=== PATIENT | male | born 1950 | race Caucasian/White ===

== ENCOUNTER 2018-03-12 14:18 | Inpatient (IN) | payer OTHER ==
--- NOTE | 2018-03-12 14:27 | PDOC ---
History of Present Illness - General Stated Complaint: WEAKNESS Time Seen by Provider: 03/12/18 14:26 History Source: Patient Exam Limitations: No Limitations - History of Present Illness Initial Comments: 03/12/18 22:14 Mr. Connor with a hx of HTN, alcoholism (29 years sober), depression, and HLD who was brought in by EMS from Dr. Humphrey's office for a possible stroke. Per EMS, a call was made at approximately 1:25 pm with arrival at 1:30 pm for assessment. The patient was found not to have slurred speech or focal neurological deficits save for constricted pupils. Per the patient, he has been having generalized weakness for the past 2 weeks and is unable to care for himself in his home that he lives by himself in. He was unable to shower himself and get to the bathroom facilities, "crawling on the floor". He states he fell 5-6x throughout the 2 weeks sustaining head trauma 1x 1 week ago. He last ate 1 week ago and doesn't consume water, but consumes "2 liters of pepsi a day". He doesn't take his medications and feels "ambivalent to living", but denies suicidal ideation, homicidal ideation, and thoughts of self harm and denies a hx of these. He describes having depression. Per the patient's brother , his house is filled with trash and his brother (Huang) needs medical attention. Per the patient, he denies having pain. Denies the following: fever, chest pain, headaches, recent visual changes, SOB, abdominal pain, dysuria, hematuria, diarrhea, nausea, vomiting, hematochezia/melena, and leg swelling/ pain. Pmhx: Refer to above Shx: None Meds: None. Has not taken prescribed medications for 1 year. Allergies: NKDA Social hx: Smokes 1 pack/day, denies drinking alcohol (sober 29 years), and denies drug use. 03/12/18 23:57 NIH Stroke Scale - Last Known Well Date/Time & Onset Date Last Known Well: 03/12/18 Time Last Known Well: 13:25 - Initial Evaluation Level of consciousness: Alert Ask patient the month and their age: Answers both correctly Ask patient to open & close eyes; make fist and let go: Obeys both correctly Best gaze (horizontal eye movement): Normal Visual field testing: No visual field loss Facial paresis (Show teeth/raise eyebrows/close eyes tight): Normal symmetrical movement Motor Function: Left Arm: Normal Motor Function: Right Arm: Normal (extends arm 90 (or 45) degrees for 10 seconds without drift Motor Function: Left Leg: Drift Motor Function: Right Leg: Normal (extends leg 30 degrees for 5 seconds without drift) Limb Ataxia: No ataxia Sensory(Use pinprick test arms,legs,trunk,face/side to side): Normal Best language (Describe picture, name items, read sentences): No Aphasia Dysarthria (read several words): Normal articulation Extinction and Inattention: No abnormality - Total Score NIH Stroke Scale Score: 1 Past History - Past Medical History Allergies/Adverse Reactions: Allergies Allergy/AdvReac Type Severity Reaction Status Date / Time No Known Allergies Allergy Verified 03/12/18 15:22 Home Medications: Ambulatory Orders NK [No Known Home Medication] 03/12/18 Review of Systems - Review of Systems Able to Perform ROS?: Yes Constitutional: Yes: Weakness. No: Chills, Diaphoresis, Fever HEENTM: No: Eye Pain, Recent change in vision, Ear Pain, Nose Pain, Throat Pain , Mouth Pain Respiratory: No: Cough, Shortness of Breath Cardiac (ROS): No: Chest Pain, Edema, Palpitations, Syncope, Chest Tightness ABD/GI: No: Constipated, Diarrhea, Nausea, Rectal Bleeding, Vomiting, Tarry Stools : No: Burning, Dysuria, Hematuria, Incontinence Musculoskeletal: No: Back Pain Integumentary: No: Rash, Sweating Neurological: Yes: Weakness. No: Headache, Numbness, Paresthesia, Tingling, Tremors, Ataxia, Dizziness Psychiatric: Yes: Depression. No: Stressors Endocrine: No: Unexplained Weight Gain Hematologic/Lymphatic: No: Anemia *Physical Exam - Physical Exam General Appearance: Yes: Nourished, Disheveled HEENT: positive: EOMI, UMER (constricted pupils on exam, but reactive to light.) , Normal ENT Inspection, Normal Voice, TMs Normal Neck: negative: Lymphadenopathy (R), Lymphadenopathy (L) Respiratory/Chest: positive: Wheezing (bilateral expiratory wheezes. ). negative: Respiratory Distress, Accessory Muscle Use, Crackles, Rhonchi, Stridor Cardiovascular: positive: Regular Rhythm, Regular Rate, S1, S2. negative: Systolic Murmur Vascular Pulses: Dorsalis-Pedis (R): 3+, Doralis-Pedis (L): 3+ Gastrointestinal/Abdominal: positive: Normal Bowel Sounds. negative: Tender Lymphatic: negative: Adenopathy Musculoskeletal: positive: Normal Inspection. negative: CVA Tenderness Extremity: positive: Normal Capillary Refill, Normal Inspection, Normal Range of Motion. negative: Swelling, Calf Tenderness, Erythema Integumentary: positive: Normal Color, Dry, Warm Neurologic: positive: director mobile II-XII NML intact, Fully Oriented, Alert, Motor Strength 5/5. negative: Numbness, Sensory Deficit Heart Score/ECG Review - ECG Intrepretation Comment:: 03/13/18 00:40 ventricular rate is 72 bpm, NC interval is 168 ms, QTc is 538 ms, and QRS duration is [address] elevations. T wave abnormalities noted with inversions in I, II, aVL, V4, V5, V6. ED Treatment Course - LABORATORY CBC & Chemistry Diagram: 03/12/18 15:10 03/12/18 15:10 Medical Decision Making - Medical Decision Making 03/13/18 00:45 67 yo M with hx of depression, HTN, HLD, and alcoholism presenting with generalized weakness and graves disabilities with inability to care for self at the home s/p multiple mechanical falls and malnutrition Initial vitals: Initial Vital Signs Temp Pulse Resp BP Pulse Ox 97.6 F 81 18 144/86 96 03/12/18 14:19 03/12/18 14:19 03/12/18 14:19 03/12/18 14:19 03/12/18 14:19 Work up: Laboratory Tests 03/12/18 03/12/18 03/12/18 15:10 15:10 15:10 WBC 15.7 H RBC 5.13 Hgb 16.1 Hct 46.5 MCV 90.7 MCH 31.4 MCHC 34.7 RDW 13.6 Plt Count 194 MPV 10.9 Absolute Neuts (auto) 13.3 H Neutrophils % 84.5 H Lymphocytes % 7.3 L Monocytes % 7.2 Eosinophils % 0.1 Basophils % 0.9 Nucleated RBC % 0 PT with INR INR Sodium 140 Potassium 2.4 L* Chloride 90 L Carbon Dioxide 37 H Anion Gap 13 BUN 37 H Creatinine 2.5 H Creat Clearance w eGFR 26.05 Random Glucose 100 Calcium 8.5 Phosphorus 3.8 Magnesium 2.5 H Total Bilirubin 1.9 H AST 28 ALT 26 Alkaline Phosphatase 71 Creatine Kinase 202 Creatine Kinase Index 1.5 CK-MB (CK-2) 3.09 Troponin I 0.07 H Total Protein 7.1 Albumin 3.1 L TSH 0.86 Urine Color Catherine Urine Appearance Slcloudy Urine pH 5.0 Ur Specific [place] 1.021 Urine Protein 2+ H Urine Glucose (UA) Negative Urine Ketones Trace H Urine Blood 1+ H Urine Nitrite Negative Urine Bilirubin 2.0 Urine Urobilinogen 4.0 e.u/dl Ur Leukocyte Esterase Negative Urine WBC (Auto) 3 Urine RBC (Auto) 10 Ur Epithelial Cells Rare Urine Mucus Rare Ur Random Sodium Urine Creatinine Blood Type Antibody Screen 03/12/18 03/12/18 03/12/18 15:10 15:15 16:44 WBC RBC Hgb Hct MCV MCH MCHC RDW Plt Count MPV Absolute Neuts (auto) Neutrophils % Lymphocytes % Monocytes % Eosinophils % Basophils % Nucleated RBC % PT with INR 12.90 INR 1.14 H Sodium Potassium Chloride Carbon Dioxide Anion Gap BUN Creatinine Creat Clearance w eGFR Random Glucose Calcium Phosphorus Magnesium Total Bilirubin AST ALT Alkaline Phosphatase Creatine Kinase Creatine Kinase Index CK-MB (CK-2) Troponin I Total Protein Albumin TSH Urine Color Urine Appearance Urine pH Ur Specific [place] Urine Protein 110 H Urine Glucose (UA) Urine Ketones Urine Blood Urine Nitrite Urine Bilirubin Urine Urobilinogen Ur Leukocyte Esterase Urine WBC (Auto) Urine RBC (Auto) Ur Epithelial Cells Urine Mucus Ur Random Sodium 6 Urine Creatinine 295.0 Blood Type O NEGATIVE Antibody Screen Negative 03/12/18 17:41 WBC RBC Hgb Hct MCV MCH MCHC RDW Plt Count MPV Absolute Neuts (auto) Neutrophils % Lymphocytes % Monocytes % Eosinophils % Basophils % Nucleated RBC % PT with INR INR Sodium Potassium Chloride Carbon Dioxide Anion Gap BUN Creatinine Creat Clearance w eGFR Random Glucose Calcium Phosphorus Magnesium Total Bilirubin AST ALT Alkaline Phosphatase Creatine Kinase Creatine Kinase Index CK-MB (CK-2) Troponin I Total Protein Albumin TSH Urine Color Urine Appearance Urine pH Ur Specific [place] Urine Protein Urine Glucose (UA) Urine Ketones Urine Blood Urine Nitrite Urine Bilirubin Urine Urobilinogen Ur Leukocyte Esterase Urine WBC (Auto) Urine RBC (Auto) Ur Epithelial Cells Urine Mucus Ur Random Sodium Urine Creatinine Blood Type O NEGATIVE Antibody Screen CXR shows early right pulmonary infiltrate. CT head showed no acute pathologies. Critical lab values include WBC 15.7, K 2.4, Cr 2.5, Mag 2.5, bili 1.9, and trops at 0.07. Likely tropinin elevation due to setting of HINA. Given 40 meq of potassium chloride PO and 10 meq IV peripheral. given 1 gram of rocephin and 500 mg azithromycin for pulmonary infiltrate likely community acquired and early PNA. given 4 doses of 1 amp q15 min of duoneb to treat audible expiratory wheezes on exam. Given [address] Humphrey admitted the patient for inpatient services. Dispo: Admit *DC/Admit/Observation/Transfer Diagnosis at time of Disposition: Hypokalemia Acute renal failure Qualifiers: Acute renal failure type: unspecified Qualified Code(s): N17.9 - Acute kidney failure, unspecified - Discharge Dispostion Decision to Admit order: Yes - Referrals - Patient Instructions - Post Discharge Activity
--- NOTE | 2018-03-12 15:10 | PDOC ---
Attending Attestation - Resident Resident Name: Medhat Herrera - ED Attending Attestation I have performed the following: I have examined & evaluated the patient, The case was reviewed & discussed with the resident, I agree w/resident's findings & plan, Exceptions are as noted - HPI HPI: 67 yo M sent by Dr. Humphrey from office for evaluation. This was patient's first time at Dr. Humphrey's office, complained of poor appetite and PO intake for past 2 weeks. Complaining of weakness. On initial presentation patient was covered in feces. He was able to give full history, completely oriented. - Physicial Exam PE: GENERAL: Awake, alert, and fully oriented, in no acute distress HEAD: No signs of trauma EYES: PERRLA, EOMI, sclera anicteric, conjunctiva clear ENT: Auricles normal inspection, hearing grossly normal, nares patent, oropharynx clear without exudates. Moist mucosa NECK: Normal ROM, supple, no lymphadenopathy, JVD, or masses LUNGS: Breath sounds equal, clear to auscultation bilaterally. No wheezes, and no crackles HEART: Regular rate and rhythm, normal S1 and S2, no murmurs, rubs or gallops ABDOMEN: Soft, nontender, normoactive bowel sounds. No guarding, no rebound. No masses EXTREMITIES: Normal range of motion, no edema. No clubbing or cyanosis. No cords, erythema, or tenderness NEUROLOGICAL: Cranial nerves II through XII grossly intact. Normal speech. 5/5 strength in all limbs except R foot (slight drift). Sensation intact throughout. SKIN: Warm, Dry, normal turgor, no rashes or lesions noted. - Medical Decision Making Pt presents for evaluation for recent confusion, poor PO intake. NIHSS 1, unknown when last at baseline. Will send AMS labs, obtain CTH, and plan for admission. NIH Stroke Scale - Last Known Well Date/Time & Onset Date Last Known Well: 03/05/18 - Initial Evaluation Level of consciousness: Alert Ask patient the month and their age: Answers both correctly Ask patient to open & close eyes; make fist and let go: Obeys both correctly Best gaze (horizontal eye movement): Normal Visual field testing: No visual field loss Facial paresis (Show teeth/raise eyebrows/close eyes tight): Normal symmetrical movement Motor Function: Left Arm: Normal Motor Function: Right Arm: Normal (extends arm 90 (or 45) degrees for 10 seconds without drift Motor Function: Left Leg: Normal (extends leg 30 degrees for 5 seconds without drift) Motor Function: Right Leg: Drift Limb Ataxia: No ataxia Sensory(Use pinprick test arms,legs,trunk,face/side to side): Normal Best language (Describe picture, name items, read sentences): No Aphasia Dysarthria (read several words): Normal articulation Extinction and Inattention: No abnormality - Total Score NIH Stroke Scale Score: 1
[2018-03-12 15:39] LABS: BASO % 0.9 % (0-2.0); EOS % 0.1 % (0-4.5); HEMATOCRIT 46.5 % (35.4-49); HEMOGLOBIN 16.1 GM/dL (11.7-16.9); LYMPH % 7.3 % (8-40); MCH 31.4 pg (25.7-33.7); MCHC 34.7 g/dl (32.0-35.9); MEAN CELL VOLUME 90.7 fl (80-96); MEAN PLT VOLUME 10.9 fl (7.5-11.1); MONO % 7.2 % (3.8-10.2); NEUT % 84.5 % (42.8-82.8); PLATELET COUNT 194 K/MM3 (134-434); RBC 5.13 M/mm3 (4.00-5.60); RDW 13.6 % (11.9-15.9); WHITE BLOOD COUNT 15.7 K/mm3 (4.0-10.0)
[2018-03-12 15:41] LABS: ALBUMIN 3.1 g/dl (3.4-5.0); ANION GAP 13 MMOL/L (8-16); BILIRUBIN,TOTAL 1.9 mg/dL (0.2-1.0); BLOOD UREA NITROGEN 37 mg/dL (7-18); CALCIUM 8.5 mg/dL (8.5-10.1); CHLORIDE 90 mmol/L (98-107); CO2 37 mmol/L (21-32); CREATININE 2.5 mg/dL (0.7-1.3); GLUCOSE,RANDOM 100 mg/dL (74-106); SGOT/AST 28 U/L (15-37); SGPT/ALT 26 U/L (12-78); SODIUM 140 mmol/L (136-145); TOT PROT 7.1 g/dl (6.4-8.2)
[2018-03-12 15:48] LABS: URINE APPEARANCE SLCLOUDY; URINE COLOR AMBER; URINE GLUCOSE (UA) NEGATIVE (NEGATIVE); URINE KETONE TRACE (NEGATIVE); URINE LEUK ESTERASE NEGATIVE (NEGATIVE); URINE NITRITE NEGATIVE (NEGATIVE); URINE UROBILINOGEN 4.0 E.U/dl mg/dL (0.2-1.0)
[2018-03-12 15:49] LABS: ALK PHOS 71 U/L (45-117)
[2018-03-12 15:50] LABS: POTASSIUM 2.4 mmol/L (3.5-5.1)
[2018-03-12 15:55] LABS: URINE PROTEIN 2+ (NEGATIVE)
[2018-03-12] MEDS ORDERED: POTASSIUM CHLORIDE ORAL LIQUID 20 MEQ/15 ML PO ONE ×2 (15:55→23:15)
[2018-03-12 16:07] LABS: EPI CELLS RARE /HPF (FEW); MAGNESIUM 2.5 mg/dL (1.8-2.4); PHOSPHOROUS 3.8 mg/dL (2.5-4.9); URINE MUCUS RARE
[2018-03-12] MEDS ORDERED: KCL 10 MEQ IVPB 10 MEQ/100 ML INFUS.BAG IVPB ONE ×3 (16:11→18:03)
[2018-03-12] MEDS ORDERED: POTASSIUM CHLORIDE ORAL LIQUID 20 MEQ/15 ML ONE (16:11)
[2018-03-12] MEDS ORDERED: ALBUTEROL SO4 2.5/IPRATROPIUM 0.5 INH SOL 3 ML VIAL.NEB. NEB ONE ×2 (16:11→16:14)
[2018-03-12] MEDS: KCL 10 MEQ IVPB 10 MEQ/100 ML INFUS.BAG IVPB SCH ×3 (16:12→18:29)
[2018-03-12] MEDS: ALBUTEROL SO4 2.5/IPRATROPIUM 0.5 INH SOL 3 ML VIAL.NEB. NEB SCH ×4 (16:12→16:45)
[2018-03-12 16:36] LABS: INR 1.14 (0.83-1.09); PROTHROMBIN TIME (PATIENT) 12.9 SEC (9.7-13.0)
[2018-03-12] MEDS ORDERED: AZITHROMYCIN IVPB 500 MG in DEXTROSE 5%-WATER - 250 ML IVPB ONE (17:11)
[2018-03-12] MEDS ORDERED: AZITHROMYCIN IVPB 250 ML IVPB ONE (17:26)
[2018-03-12] MEDS ORDERED: CEFTRIAXONE 1 GM/50 ML BAG ONE (17:27)
[2018-03-12] MEDS ORDERED: ACETAMINOPHEN 325 MG TABLET (FP) PO PRN (18:09)
--- NOTE | 2018-03-12 18:09 | HP ---
Admitting History and Physical - Primary Care Physician PCP: Amadou Humphrey - Admission Chief Complaint: LETHARGY/SEPSIS History of Present Illness: 67 Y/O MALE SEEN IN MY OFFICE WITH ACUTE DISTRESS WITH PROGRESSIVE LETHARGY, WEAKNESS, POOR APPETITIE APPEARS TO BE IN POOR HYGEINE. PATIENT WAS WITH HIS BROTHER WHO SAYS HE CALLED EMS OVERNIGHT BUT THE PATIENT REFUSED TO GO TO THE HOSPITAL. I SEEN THE PATIENT IN MY OFFICE AND WAS CONCERNED OF A NEUROLOGICAL EVENT VS SEPSIS WITH ALTERED MENTAL STATUS I SENT HIM TO THE HOSPITAL IMMEDIATELY History Source: Family Member Limitations to Obtaining History: Clinical Condition - Smoking History Smoking history: Current every day smoker Have you smoked in the past 12 months: Yes Aproximately how many cigarettes per day: 25 - Alcohol/Substance Use Hx Alcohol Use: No Home Medications - Allergies Allergies/Adverse Reactions: Allergies Allergy/AdvReac Type Severity Reaction Status Date / Time No Known Allergies Allergy Verified 03/12/18 15:22 - Home Medications Home Medications: Ambulatory Orders NK [No Known Home Medication] 03/12/18 Review of Systems - Review of Systems Constitutional: reports: Lethargy, Loss of Appetite, Weakness Eyes: reports: No Symptoms HENT: reports: No Symptoms Neck: reports: No Symptoms Cardiovascular: reports: Shortness of Breath Respiratory: reports: SOB Gastrointestinal: reports: No Symptoms Genitourinary: reports: No Symptoms Musculoskeletal: reports: Muscle Weakness Integumentary: reports: Rash Neurological: reports: Confusion, Other Endocrine: reports: No Symptoms Hematology/Lymphatic: reports: No Symptoms Psychiatric: reports: Other Physical Examination Vital Signs: Vital Signs Temperature 97.6 F 03/12/18 14:19 Pulse Rate 81 03/12/18 14:19 Respiratory Rate 18 03/12/18 14:19 Blood Pressure 144/86 03/12/18 14:19 O2 Sat by Pulse Oximetry (%) 98 03/12/18 15:18 Constitutional: Yes: Moderate Distress Eyes: Yes: WNL HENT: Yes: WNL Neck: Yes: WNL Cardiovascular: Yes: WNL Respiratory: Yes: Cough, Diminished, SOB Gastrointestinal: Yes: WNL Renal/: Yes: WNL Musculoskeletal: Yes: Muscle Weakness Extremities: Yes: Other Edema: Yes Peripheral Pulses WNL: Yes Integumentary: Yes: Other Wound/Incision: Yes: Other (POOR HYGEINE) Neurological: Yes: Confusion ...Motor Strength: LLE, RLE Psychiatric: Yes: Other Labs: CBC, BMP 03/12/18 15:10 03/12/18 15:10 Imaging - Results Chest X-ray: Report Reviewed Problem List - Problems (1) PNA (pneumonia) Code(s): J18.9 - PNEUMONIA, UNSPECIFIED ORGANISM (2) Sepsis Code(s): A41.9 - SEPSIS, UNSPECIFIED ORGANISM (3) Altered mental status Code(s): R41.82 - ALTERED MENTAL STATUS, UNSPECIFIED (4) Acute renal failure Code(s): N17.9 - ACUTE KIDNEY FAILURE, UNSPECIFIED (5) Hypokalemia Code(s): E87.6 - HYPOKALEMIA (6) Toxic metabolic encephalopathy Code(s): G92 - TOXIC ENCEPHALOPATHY Assessment/Plan IVF IV ABX PULM/RNAL/ID FOLLOW UP NEUROLOGY EVAL CHECK CULTURES RENAL SONO/ECHO TO ASSES CARDIAC AND RENAL FUNCTION URINE TOXICOLOGY FALL RISKS PT EVAL
[2018-03-12] MEDS: DEXTROSE 5%-NORMAL SALINE 1,000 ML IV SCH (18:36)
--- NOTE | 2018-03-12 19:30 | CONSULT ---
Consult Consult Specialty:: Nephrology Reason for Consultation:: HINA and hypokalemia - History of Present Illness Chief Complaint: sent in for diarrhea and poor appetite History of Present Illness: Pt is a 67 year old male who was sent in to the hospital for diarrhea and decreased PO intake. He says that he has not had anything to eat in a week. He says he does not have appetite. He does not know how long he has had diarrhea. Pt also has very poor hygiene. He had refused to go to the hospital from his home. He went to see his PMD who sent him in. He was found to be in acute renal failure and was also found to be hypokalemic. He denies medical history and says that he does not take any medications. He denies dysuria or hematuria. - History Source History Provided By: Patient, Medical Record - Alcohol/Substance Use Hx Alcohol Use: No - Smoking History Smoking history: Current every day smoker Have you smoked in the past 12 months: Yes Aproximately how many cigarettes per day: 25 Home Medications - Allergies Allergies/Adverse Reactions: Allergies Allergy/AdvReac Type Severity Reaction Status Date / Time No Known Allergies Allergy Verified 03/12/18 15:22 - Home Medications Home Medications: Ambulatory Orders NK [No Known Home Medication] 03/12/18 Family Disease History - Family Disease History Family History: Denies Review of Systems - Review of Systems Constitutional: reports: Lethargy, Loss of Appetite, Malaise, Weakness Eyes: reports: No Symptoms HENT: reports: No Symptoms Neck: reports: No Symptoms Cardiovascular: reports: No Symptoms Respiratory: reports: No Symptoms Gastrointestinal: reports: Diarrhea Genitourinary: reports: No Symptoms Musculoskeletal: reports: No Symptoms Integumentary: reports: No Symptoms Neurological: reports: No Symptoms Endocrine: reports: No Symptoms Hematology/Lymphatic: reports: No Symptoms Psychiatric: reports: No Symptoms Physical Exam Vital Signs: Vital Signs Temperature 97.6 F 03/12/18 14:19 Pulse Rate 79 03/12/18 18:34 Respiratory Rate 28 H 03/12/18 18:34 Blood Pressure 116/83 03/12/18 18:34 O2 Sat by Pulse Oximetry (%) 95 03/12/18 18:34 Constitutional: Yes: Calm, Poor Hygeine Eyes: Yes: Conjunctiva Clear HENT: Yes: Atraumatic Neck: Yes: Supple Cardiovascular: Yes: S1, S2 Respiratory: Yes: CTA Bilaterally Gastrointestinal: Yes: Soft Renal/: Yes: WNL Musculoskeletal: Yes: Muscle Weakness Edema: No Neurological: Yes: Oriented Psychiatric: Yes: Oriented Labs: CBC, BMP 03/12/18 15:10 03/12/18 15:10 Laboratory Tests 03/12/18 03/12/18 03/12/18 15:10 15:10 15:10 WBC 15.7 H Hgb 16.1 Sodium 140 Potassium 2.4 L* Chloride 90 L Carbon Dioxide 37 H Anion Gap 13 BUN 37 H Creatinine 2.5 H Magnesium 2.5 H Total Bilirubin 1.9 H Urine Ketones Trace H Urine Blood 1+ H Ur Random Sodium 03/12/18 16:44 WBC Hgb Sodium Potassium Chloride Carbon Dioxide Anion Gap BUN Creatinine Magnesium Total Bilirubin Urine Ketones Urine Blood Ur Random Sodium 6 Imaging - Results Chest X-ray: Report Reviewed Cat Scan: Report Reviewed Problem List - Problems (1) Acute renal failure Code(s): N17.9 - ACUTE KIDNEY FAILURE, UNSPECIFIED (2) Altered mental status Code(s): R41.82 - ALTERED MENTAL STATUS, UNSPECIFIED (3) Hypokalemia Code(s): E87.6 - HYPOKALEMIA (4) Sepsis Code(s): A41.9 - SEPSIS, UNSPECIFIED ORGANISM (5) Toxic metabolic encephalopathy Code(s): G92 - TOXIC ENCEPHALOPATHY Assessment/Plan Current Medications Generic Name Dose Route Start Last Admin Trade Name Freq PRN Reason Stop Dose Admin Acetaminophen 650 mg 03/12/18 18:09 Tylenol - PO Q6H PRN PAIN OR FEVER Heparin Sodium (Porcine) 5,000 unit 03/12/18 22:00 Heparin - SQ BID OKSANA Dextrose/Sodium Chloride 1,000 mls @ 75 mls/hr 03/12/18 18:15 D5-Ns - IV ASDIR OKSANA Impression 1. HINA 2. hypokalemia 3. diarrhea 4. altered mental status Plan - hina is likely pre-renal as urine sodium is very low and pt appears dehydrated - decreased PO intake in the setting of diarrhea can explain the hypokalemia - check renal ultrasound - potassium replaced, repeat levels - agree with IV fluids - will monitor renal function - will follow pt Dr Cole
[2018-03-13] MEDS: DEXTROSE 5%-NORMAL SALINE 1,000 ML IV SCH (00:17)
[2018-03-13] MEDS: HEPARIN NA (PORCINE) 5,000 UNITS/ML 1ML VIAL SQ SCH ×3 (00:19→21:35)
[2018-03-13] MEDS ORDERED: HEPARIN NA (PORCINE) 5,000 UNITS/ML 1ML VIAL ONE (00:22)
[2018-03-13] MEDS ORDERED: POTASSIUM CHLORIDE ORAL LIQUID 20 MEQ/15 ML ONE (00:22)
[2018-03-13 02:05] LABS: ANION GAP 8 MMOL/L (8-16); BLOOD UREA NITROGEN 39 mg/dL (7-18); CALCIUM 7.7 mg/dL (8.5-10.1); CHLORIDE 93 mmol/L (98-107); CO2 37 mmol/L (21-32); CREATININE 2.5 mg/dL (0.7-1.3); GLUCOSE,RANDOM 100 mg/dL (74-106); SODIUM 138 mmol/L (136-145)
[2018-03-13 02:17] LABS: POTASSIUM 2.4 mmol/L (3.5-5.1)
[2018-03-13] MEDS ORDERED: POTASSIUM CHLORIDE ORAL LIQUID 20 MEQ/15 ML PO ONE ×3 (02:50→13:00)
[2018-03-13] MEDS: KCL 10 MEQ IVPB 10 MEQ/100 ML INFUS.BAG IVPB SCH ×6 (03:01→15:41)
[2018-03-13 03:38] VITALS: BMI 28.0
[2018-03-13 07:57] LABS: EOS % 1.1 % (0-4.5); HEMATOCRIT 42.2 % (35.4-49); HEMOGLOBIN 14.2 GM/dL (11.7-16.9); MCH 31.2 pg (25.7-33.7); MCHC 33.8 g/dl (32.0-35.9); MEAN CELL VOLUME 92.3 fl (80-96); MEAN PLT VOLUME 10.1 fl (7.5-11.1); MONO % 7.6 % (3.8-10.2); NEUT % 77.3 % (42.8-82.8); PLATELET COUNT 142 K/MM3 (134-434); RBC 4.57 M/mm3 (4.00-5.60); RDW 14.2 % (11.9-15.9); WHITE BLOOD COUNT 9.8 K/mm3 (4.0-10.0)
[2018-03-13 08:42] LABS: CHLORIDE 95 mmol/L (98-107); SODIUM 138 mmol/L (136-145)
[2018-03-13 08:53] LABS: BLOOD UREA NITROGEN 35 mg/dL (7-18); CALCIUM 7.6 mg/dL (8.5-10.1); CREATININE 2.1 mg/dL (0.7-1.3); GLUCOSE,RANDOM 88 mg/dL (74-106); MAGNESIUM 2.4 mg/dL (1.8-2.4); PHOSPHOROUS 4.3 mg/dL (2.5-4.9)
[2018-03-13 09:05] LABS: POTASSIUM 2.8 mmol/L (3.5-5.1)
[2018-03-13 09:05] LABS: METHADONE, UR NEGATIVE ng/ml (CUTOFF=300); OPIATES, URI NEGATIVE ng/ml (CUTOFF=300); PHENCYCLIDINE,URINE NEGATIVE ng/ml (CUTOFF=25); URINE AMPHETAMINES NEGATIVE ng/ml (CUTOFF=500); URINE BARBITURATES NEGATIVE ng/ml (CUTOFF=200)
[2018-03-13 09:08] LABS: COCAINE, UR NEGATIVE ng/ml (CUTOFF=300); URINE BENZODIAZEPINES NEGATIVE ng/ml (CUTOFF=200)
--- NOTE | 2018-03-13 09:44 | CON.NEURO ---
Consult - History of Present Illness History of Present Illness: hx of HTN, alcoholism (29 years sober), depression, and HLD who was brought in by EMS from Dr. Humphrey's office for a possible stroke. Per EMS, a call was made at approximately 1:25 pm with arrival at 1:30 pm for assessment. The patient was found not to have slurred speech or focal neurological deficits save for constricted pupils. Per the patient, he has been having generalized weakness for the past 2 weeks and is unable to care for himself in his home that he lives by himself in. He was unable to shower himself and get to the bathroom facilities, "crawling on the floor". He states he fell 5-6x throughout the 2 weeks sustaining head trauma 1x 1 week ago. He last ate 1 week ago and doesn't consume water, but consumes "2 liters of pepsi a day". He doesn't take his medications and feels "ambivalent to living", but denies suicidal ideation, homicidal ideation, and thoughts of self harm and denies a hx of these. He describes having depression. Per the patient's brother, his house is filled with trash and his brother (Huang) needs medical attention. Per the patient, he denies having pain. Denies the following: fever, chest pain, headaches, recent visual changes, SOB, abdominal pain, dysuria, hematuria, diarrhea, nausea , vomiting, hematochezia/melena, and leg swelling/pain. TOX (-) , low K, and elevated WBC HD CT Impression: No CT evidence of acute intracranial pathology. Mild periventricular chronic microvascular ischemic changes. Focal nonspecific subcutaneous soft tissue thickening is seen along the left occipital/ suboccipital region - ? posttraumatic etiology versus inflammatory or neoplastic etiologies. Correlate clinically. - Alcohol/Substance Use Hx Alcohol Use: No - Smoking History Smoking history: Current every day smoker Have you smoked in the past 12 months: Yes Aproximately how many cigarettes per day: 25 Home Medications - Allergies Allergies/Adverse Reactions: Allergies Allergy/AdvReac Type Severity Reaction Status Date / Time No Known Allergies Allergy Verified 03/12/18 15:22 - Home Medications Home Medications: Ambulatory Orders NK [No Known Home Medication] 03/12/18 Physical Exam-Neuro Vital Signs: Vital Signs Temperature 97.5 F L 03/13/18 07:26 Pulse Rate 75 03/13/18 07:26 Respiratory Rate 20 03/13/18 07:26 Blood Pressure 147/88 03/13/18 07:26 O2 Sat by Pulse Oximetry (%) 94 L 03/13/18 03:57 Constitutional: Yes: Poor Hygeine Labs: CBC, BMP 03/13/18 06:20 03/13/18 06:20 INR, PTT INR 1.14 (0.83-1.09) H 03/12/18 15:15 - Neuro Exam Level Of Consciousness: Yes: Alert (awake, alert x 3, mood admits depressed, EOMI, no facial, motor 5/5 , ) Imaging - Results Cat Scan: Report Reviewed, Image Reviewed Problem List - Problems (1) Altered mental status Code(s): R41.82 - ALTERED MENTAL STATUS, UNSPECIFIED (2) Hypokalemia Code(s): E87.6 - HYPOKALEMIA (3) PNA (pneumonia) Code(s): J18.9 - PNEUMONIA, UNSPECIFIED ORGANISM (4) Sepsis Code(s): A41.9 - SEPSIS, UNSPECIFIED ORGANISM (5) Toxic metabolic encephalopathy Code(s): G92 - TOXIC ENCEPHALOPATHY Assessment/Plan HTN, alcoholism (29 years sober), depression, and HLD who was brought in by EMS from Dr. Humphrey's office for a possible stroke. Per EMS, a call was made at approximately 1:25 pm with arrival at 1:30 pm for assessment. The patient was found not to have slurred speech or focal neurological deficits save for constricted pupils. Per the patient, he has been having generalized weakness for the past 2 weeks and is unable to care for himself in his home that he lives by himself in. He was unable to shower himself and get to the bathroom facilities, "crawling on the floor". He states he fell 5-6x throughout the 2 weeks sustaining head trauma 1x 1 week ago. He last ate 1 week ago and doesn't consume water, but consumes "2 liters of pepsi a day". He doesn't take his medications and feels "ambivalent to living", but denies suicidal ideation, homicidal ideation, and thoughts of self harm and denies a hx of these. He describes having depression. Per the patient's brother, his house is filled with trash and his brother (Huang) needs medical attention. Per the patient, he denies having pain. Denies the following: fever, chest pain, headaches, recent visual changes, SOB, abdominal pain, dysuria, hematuria, diarrhea, nausea , vomiting, hematochezia/melena, and leg swelling/pain. no back or neck pain or focal deficist. TOX (-) , low K, and elevated WBC AP : metabolic encephalopathy in deconditioned hygeine /nutrional states no evidence of an acute stroke FU infectious etiology , metabolic -low K etc CT -no clinical correlation to soft tissue lesion seen on CT HD (no HD etc ) check B12 , TSh , PSYCH consult for depression DR PICKARD
--- NOTE | 2018-03-13 10:47 | EKG ---
Test Reason : Blood Pressure : / mmHG Vent. Rate : 072 BPM Atrial Rate : 072 BPM P-R Int : 168 ms QRS Dur : 096 ms QT Int : 492 ms P-R-T Axes : 057 -14 203 degrees QTc Int : 538 ms NORMAL SINUS RHYTHM WITH SINUS ARRHYTHMIA MODERATE VOLTAGE CRITERIA FOR LVH, MAY BE NORMAL VARIANT PROLONGED QT ABNORMAL ECG NO PREVIOUS ECGS AVAILABLE Confirmed by STEPHANIE JONAS, DARINEL ([id number]) on 03/13/2018 10:47:31 AM Referred By: Confirmed By:DARINEL BROWN MD
[2018-03-13 11:11] LABS: ANION GAP 8 MMOL/L (8-16); CO2 35 mmol/L (21-32)
--- NOTE | 2018-03-13 11:36 | CONSULT ---
Admitting History and Physical - Primary Care Physician PCP: Amadou Humphrey - Admission History of Present Illness: Per EMR: HTN, alcoholism (29 years sober), depression, and HLD who was brought in by EMS from Dr. Humphrey's office for a possible stroke. Per EMS, a call was made at approximately 1:25 pm with arrival at 1:30 pm for assessment. The patient was found not to have slurred speech or focal neurological deficits save for constricted pupils. Per the patient, he has been having generalized weakness for the past 2 weeks and is unable to care for himself in his home that he lives by himself in. He was unable to shower himself and get to the bathroom facilities, "crawling on the floor". He states he fell 5-6x throughout the 2 weeks sustaining head trauma 1x 1 week ago. He last ate 1 week ago and doesn't consume water, but consumes "2 liters of pepsi a day". He doesn't take his medications and feels "ambivalent to living", but denies suicidal ideation, homicidal ideation, and thoughts of self harm and denies a hx of these. He describes having depression. Per the patient's brother, his house is filled with trash and his brother (Huang) needs medical attention. Per the patient, he denies having pain. Denies the following: fever, chest pain, headaches, recent visual changes, SOB, abdominal pain, dysuria, hematuria, diarrhea, nausea , vomiting, hematochezia/melena, and leg swelling/pain. no back or neck pain or focal deficist. TOX (-) , low K, and elevated WBC Neurology AP : metabolic encephalopathy in deconditioned hygeine /nutrional states no evidence of an acute stroke Selected Entries 03/13/18 03/13/18 03/13/18 00:30 03:28 07:26 Breakfast Temperature 98.6 F 97.5 F L 97.5 F L 03/13/18 03/13/18 10:10 11:20 Breakfast 75% Temperature 98 F Laboratory Tests 03/12/18 03/13/18 15:10 06:20 WBC 15.7 H 9.8 This is my first consult with this pt. History Source: Patient, Medical Record - Smoking History Smoking history: Current every day smoker Have you smoked in the past 12 months: Yes Aproximately how many cigarettes per day: 25 - Alcohol/Substance Use Hx Alcohol Use: No History - Admission Reason For Visit: ACUTE RENAL FAILURE,HYPOKALEMIA - Diagnostics X-ray: Report Reviewed CT Scan: Report Reviewed - General Mental Status: Alert and Oriented, Awake and Alert, Able to Follow Commands Attention: Intact - Hearing Hearing: Normal Speech Evaluation - Communication Primary Language: EGYPTIAN Communication: Yes: Within Normal Limits Oral Expression Ability: Yes: No Impairment - Speech Production Able to Make Needs Known: Yes: WNL Intelligibility: Yes: WNL - Speech Characteristics Voice Loudness: Normal Voice Pitch: Yes: Normal Voice Phonatory-based Quality: Yes: Normal Speech Pattern: Normal Speech Clarity: < 100% Nasal Resonance: Normal Articulation: Yes: Precise Rate of Speech: Intact - Language/Auditory Comprehension Follows: Yes: 2 Stage Simple Commands - Language/Verbal Expression Able to Respond to Simple Queries: Yes: WNL Able to Communicate Wants and Needs: Yes: WNL Functional Communication Status: Yes: WNL - Swallow Evaluation/Bedside Assessment Current Nutritional Intake: Regular, Thin Liquids Oral Secretions: Yes: WFL Dentition: Yes: Adequate (lower), Edentulous (upper. 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 Spit out burger "disgusting" vs hard to chew?) A-P Transit: WFL Pocketing: None Timing of Swallow: WFL Coughing/Throat Clear: Yes (one brief cough on thin liquid. Following, (-) 3 oz water test) Recommendations - Speech Evaluation, Impression/Plan Impression: Verbal. Appropriate but seems hesitant to respond to questions.He doesnt know what happened. No upper dentition. - Dysphagia Impressions/Plan Dysphagia Impressions: Mild Impairment, Risk of Aspiration (monitor for cough) *Silent aspiration: cannot be R/O at bedside Recommendations: Modified Barium Swallow (if cough,congestion) - Recommendations Diet Consistency: Regular (soft, easy to chew, renal) Medication Administration: Whole with water Liquids: Thin Liquids Supplement: Magic Cup, Nepro, Other (RD to confirm which supplements are best for this pt.)
--- NOTE | 2018-03-13 11:39 | PN ---
Progress Note (short form) - Note Progress Note: ID Consult dictated RLL Pneumonia Possible toxic metabolic encephalopthy secondary to pneumonia Deconditioned state Await c/s Check legionella ag Empiric ceftraixone/ zithromax Declines HIV testing
[2018-03-13] MEDS ORDERED: DEXTROSE 5%-NORMAL SALINE 990 ML with POTASSIUM CHLORIDE 20 MEQ IVPB SCH (12:19)
--- NOTE | 2018-03-13 12:19 | PN ---
Progress Note, Physician History of Present Illness: Pt seen and examined at bedside. He is awake but is confused at times. - Current Medication List Current Medications: Active Medications Acetaminophen (Tylenol -) 650 mg PO Q6H PRN PRN Reason: PAIN OR FEVER Heparin Sodium (Porcine) (Heparin -) 5,000 unit SQ BID [facility] Last Admin: 03/13/18 09:54 Dose: 5,000 unit Dextrose/Sodium Chloride (D5-Ns -) 1,000 mls @ 75 mls/hr IV ASDIR [facility] Last Admin: 03/13/18 00:17 Dose: 75 mls/hr - Objective Vital Signs: Vital Signs Temperature 98 F 03/13/18 10:10 Pulse Rate 80 03/13/18 10:10 Respiratory Rate 18 03/13/18 10:10 Blood Pressure 144/94 03/13/18 10:10 O2 Sat by Pulse Oximetry (%) 94 L 03/13/18 03:57 Constitutional: Yes: Calm Eyes: Yes: Conjunctiva Clear HENT: Yes: Atraumatic Cardiovascular: Yes: S1, S2 Respiratory: Yes: CTA Bilaterally Gastrointestinal: Yes: Soft, Abdomen, Obese Genitourinary: Yes: WNL Musculoskeletal: Yes: WNL Edema: No Neurological: Yes: Confusion Labs: CBC, BMP 03/13/18 06:20 03/13/18 06:20 INR, PTT INR 1.14 (0.83-1.09) H 03/12/18 15:15 Problem List - Problems (1) Acute renal failure Code(s): N17.9 - ACUTE KIDNEY FAILURE, UNSPECIFIED Qualifiers: Qualified Code(s): N17.9 - Acute kidney failure, unspecified (2) Altered mental status Code(s): R41.82 - ALTERED MENTAL STATUS, UNSPECIFIED (3) Hypokalemia Code(s): E87.6 - HYPOKALEMIA (4) Sepsis Code(s): A41.9 - SEPSIS, UNSPECIFIED ORGANISM (5) Toxic metabolic encephalopathy Code(s): G92 - TOXIC ENCEPHALOPATHY Assessment/Plan Current Medications Generic Name Dose Route Start Last Admin Trade Name Freq PRN Reason Stop Dose Admin Acetaminophen 650 mg 03/12/18 18:09 Tylenol - PO Q6H PRN PAIN OR FEVER Heparin Sodium (Porcine) 5,000 unit 03/12/18 22:00 03/13/18 09:54 Heparin - SQ 5,000 unit BID [facility] Administration Dextrose/Sodium Chloride 1,000 mls @ 75 mls/hr 03/12/18 18:15 03/13/18 00:17 D5-Ns - IV 75 mls/hr ASDIR [facility] Administration Potassium Chloride 20 meq 03/13/18 12:16 Potassium Chloride Oral Liquid PO 03/13/18 12:17 ONCE ONE Impression 1. HINA 2. hypokalemia 3. diarrhea 4. altered mental status Plan - renal function is improving - supplements potassum - will add potassium to fluids as well - repeat k level - neuro follow up - renal ultrasound reviewed - follow urine studies - will follow pt Dr Cole
--- NOTE | 2018-03-13 13:01 | CONS ---
DATE OF CONSULTATION: DATE OF DICTATION: 03/13/2018 HISTORY OF PRESENT ILLNESS: The patient is a 67-year-old male who is evaluated for pneumonia. History was obtained from the chart as he cannot give a reliable history. According to the notes, he had presented to his primary care doctor with complaints of profound weakness and falls at home and decreased oral intake. He was noted to be short of breath. He was referred to the emergency room to rule out an acute CVA. A CAT scan of the head was negative for acute infarct. On chest x-ray, he was noted to have increased markings at the right base, possible pneumonia. The patient was noted to have a cough. The patient reports an occasional cough with sputum production. He denies any chest pain or dyspnea. He denies any associated fever or chills. The patient was apparently living at home alone and was found to be disheveled with his residence in disarray. He denies any ill contacts. He reports that he lives alone. He is a smoker. He denies any recent travel, no recent hospitalizations. He has a pet cat. The patient has a long tobacco history. He states he still smokes several cigarettes a day. He has a history of alcohol use but stopped approximately 30 years ago. 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 The patient has not received an influenza vaccine or pneumococcal vaccine in the recent past. PAST MEDICAL HISTORY: Positive for hypertension, hyperlipidemia, depression. ALLERGIES: No known allergies. MEDICATIONS: Lipitor. SOCIAL HISTORY: As per HPI. He states he is single, not sexually active. He denies risk factors for HIV. SYSTEMS REVIEW: Neurologic: As per HPI. Cardiac: Negative for chest pain or palpitations. Respiratory: As per HPI. Gastrointestinal: Negative for vomiting or diarrhea. Genitourinary: Negative for urinary tract infection. LABORATORY DATA: White count on admission 15.7, currently 9.8, hematocrit 42.2, platelet count 142, BUN 35, creatinine 2.1. Urinalysis shows 3 white cells. Blood and urine cultures are pending. PHYSICAL EXAMINATION: General: The patient awake. He is lethargic and appears weak. His breathing is unlabored. He is noted to have a cough. Vital Signs: Temperature 98, pulse 80 and regular, blood pressure 144/94, respiratory rate 18 per minute. HEENT:: Sclerae anicteric. There is horizontal nystagmus. Oropharynx: The tongue is hydrated. Neck: Supple. Heart: Heart sounds S1, S2. Lungs: Rhonchi bilaterally . Abdomen: Obese, nontender. Extremities: There is 1+ edema. IMPRESSION: 1. Probable community-acquired/atypical right lower lobe pneumonia. 2. Possible toxic metabolic encephalopathy secondary to pneumonia. 3. Leukocytosis. 4. Deconditioning. PLAN: 1. Await culture results. 2. Would obtain a sputum culture plus urine, Legionella and pneumococcal antigens. 3. Continue empiric Zithromax and ceftriaxone. 4. Obtain RPR. 5. The patient declines HIV testing. We will follow. Thank you for the kind referral. MARTHA VUONG M.D. LILLIE [id number]
[2018-03-13] MEDS: CYANOCOBALAMIN (VITAMIN B-12) 1000 MCG/1 ML VIAL IM SCH (13:14)
[2018-03-13] MEDS: POTASSIUM CHLORIDE ORAL LIQUID 20 MEQ/15 ML PO ONE ×2 (13:16→13:28)
[2018-03-13] MEDS ORDERED: POTASSIUM CHLORIDE TABS 20 MEQ TABLET.ER (FP) PO ONE (13:24)
--- NOTE | 2018-03-13 13:24 | PN ---
Progress Note, Physician Chief Complaint: hypokalemia AMS History of Present Illness: NAD in bed alert and oriented Seen by ID, nephrology and neurology for AMS hypokalemic received 120 po kcl and 60 IV kcl yesterday Performed poorly with physical therapy - Current Medication List Current Medications: Active Medications Acetaminophen (Tylenol -) 650 mg PO Q6H PRN PRN Reason: PAIN OR FEVER Cyanocobalamin (Vitamin B12 Injection -) 1,000 mcg IM DAILY [facility] Last Admin: 03/13/18 13:14 Dose: 1,000 mcg Heparin Sodium (Porcine) (Heparin -) 5,000 unit SQ BID [facility] Last Admin: 03/13/18 09:54 Dose: 5,000 unit Potassium Chloride (Potassium Chloride 10 Meq Premix Ivpb -) 10 meq in 100 mls @ 100 mls/hr IVPB Q60M [facility] Stop: 03/13/18 15:59 Last Admin: 03/13/18 13:14 Dose: 100 mls/hr Dextrose/Sodium Chloride (Dextrose 5%-Normal Saline+40 Meq Kcl -) 40 meq in 1, 000 mls @ 75 mls/hr IV ASDIR [facility] Potassium Chloride (K-Dur -) 40 meq PO ONCE ONE Stop: 03/13/18 13:25 - Objective Vital Signs: Vital Signs Temperature 98 F 03/13/18 10:10 Pulse Rate 80 03/13/18 10:10 Respiratory Rate 18 03/13/18 10:10 Blood Pressure 144/94 03/13/18 10:10 O2 Sat by Pulse Oximetry (%) 94 L 03/13/18 03:57 Constitutional: Yes: Well Nourished, No Distress, Calm, Poor Hygeine Cardiovascular: Yes: Regular Rate and Rhythm Respiratory: Yes: Regular, Rales (BLL) Gastrointestinal: Yes: Normal Bowel Sounds, Soft Musculoskeletal: Yes: Muscle Weakness Neurological: Yes: Alert, Oriented Psychiatric: Yes: Alert, Oriented Labs: CBC, BMP 03/13/18 06:20 03/13/18 12:40 INR, PTT INR 1.14 (0.83-1.09) H 03/12/18 15:15 Problem List - Problems (1) Acute renal failure Assessment/Plan: -nephrology -IVF -Cr improving -Monitor Cr Code(s): N17.9 - ACUTE KIDNEY FAILURE, UNSPECIFIED Qualifiers: Acute renal failure type: unspecified Qualified Code(s): N17.9 - Acute kidney failure, unspecified (2) Altered mental status Assessment/Plan: 2/2 metabolic encephalopathy -Head CT negative -Seen by neurology Code(s): R41.82 - ALTERED MENTAL STATUS, UNSPECIFIED (3) Hypokalemia Assessment/Plan: -Give additional KCl 10 meq x 3 -Increase KCl in D5 to 40 meq -Nephrology on board -change diet to low sodium diet -monitor in AM Code(s): E87.6 - HYPOKALEMIA (4) PNA (pneumonia) Assessment/Plan: -ID on board -IV abx -Pulmonary consult -Bronchodilators -IV medrol as per pulmonary Code(s): J18.9 - PNEUMONIA, UNSPECIFIED ORGANISM (5) Toxic metabolic encephalopathy Assessment/Plan: -mental status improved -UC/BC pending -afebrile -ID consult -IV abx Code(s): G92 - TOXIC ENCEPHALOPATHY Assessment/Plan see problem list DVT prophylaxis did poorly with Physical therapy Dispo: to SNF once ready for discharge
[2018-03-13 13:27] LABS: CHOLESTEROL 116 mg/dL (50-200); TRIGLYCERIDES 120 mg/dL (35-160)
[2018-03-13 13:29] LABS: HDL CHOLESTEROL 31 mg/dL (40-60)
[2018-03-13 14:04] LABS: ALBUMIN 2.8 g/dl (3.4-5.0); ALK PHOS 57 U/L (45-117); SGOT/AST 16 U/L (15-37); SGPT/ALT 21 U/L (12-78); TOT PROT 6.3 g/dl (6.4-8.2)
--- NOTE | 2018-03-13 14:22 | CON.PULM ---
Consult Consult Specialty:: PULMONARY Referred by:: Dr. Humphrey Reason for Consultation:: shortness of breath - History of Present Illness Chief Complaint: altered mental status History of Present Illness: 67yo male with h/o HTN, hyperlipidemia, depression who was sent from PMD office for altered mental status, r/o stroke. He has been experiencing dyspnea especially with exertion for "a while." He reports an intermittent cough with white/yellow sputum. Does hear wheezing sometimes. No leg swelling or orthopnea. No PND. Started smoking at age 16, smoked on average 1.5-2 PPD over the years, now down to less than 1 PPD. No fevers, chills or sweats. - History Source History Provided By: Patient, Medical Record Limitations to Obtaining History: No Limitations - Past Medical History Cardio/Vascular: Yes: HTN, Hyperlipdemia Psych: Yes: Depression - Alcohol/Substance Use Hx Alcohol Use: No - Smoking History Smoking history: Current every day smoker Have you smoked in the past 12 months: Yes Aproximately how many cigarettes per day: 25 Home Medications - Allergies Allergies/Adverse Reactions: Allergies Allergy/AdvReac Type Severity Reaction Status Date / Time No Known Allergies Allergy Verified 03/12/18 15:22 - Home Medications Home Medications: Ambulatory Orders NK [No Known Home Medication] 03/12/18 Review of Systems - Review of Systems Constitutional: reports: Weakness. denies: Chills, Fever Eyes: denies: Recent Change in Vision HENT: denies: Nasal Congestion, Throat Pain Neck: denies: Stiffness, Tenderness Cardiovascular: reports: Shortness of Breath. denies: Chest Pain, Edema, Palpitations Respiratory: reports: Cough, SOB on Exertion, Wheezing. denies: Hemoptysis Gastrointestinal: denies: Abdominal Pain, Nausea, Vomiting Genitourinary: denies: Dysuria, Hematuria Neurological: denies: Dizziness, Headache Physical Exam Vital Sings: Vital Signs Temperature 98 F 03/13/18 10:10 Pulse Rate 80 03/13/18 10:10 Respiratory Rate 18 03/13/18 10:10 Blood Pressure 144/94 03/13/18 10:10 O2 Sat by Pulse Oximetry (%) 96 03/13/18 09:00 Constitutional: Yes: Anxious Eyes: Yes: Conjunctiva Clear, EOM Intact HENT: Yes: Atraumatic, Normocephalic Neck: Yes: Supple, Trachea Midline Cardiovascular: Yes: Regular Rate and Rhythm Respiratory: Yes: Rhonchi, Wheezes ...Clubbing: No Gastrointestinal: Yes: Normal Bowel Sounds, Soft. No: Tenderness Edema: No Neurological: Yes: Alert, Oriented Labs: CBC, BMP 03/13/18 06:20 03/13/18 12:40 Imaging - Results Chest X-ray: Report Reviewed, Image Reviewed (mild pulmonary vascular congestion ) Problem List - Problems (1) Altered mental status Code(s): R41.82 - ALTERED MENTAL STATUS, UNSPECIFIED (2) Hypokalemia Code(s): E87.6 - HYPOKALEMIA (3) Acute renal failure Code(s): N17.9 - ACUTE KIDNEY FAILURE, UNSPECIFIED Qualifiers: Acute renal failure type: unspecified Qualified Code(s): N17.9 - Acute kidney failure, unspecified (4) COPD with acute exacerbation Code(s): J44.1 - CHRONIC OBSTRUCTIVE PULMONARY DISEASE W (ACUTE) EXACERBATION (5) Smoker Code(s): F17.200 - NICOTINE DEPENDENCE, UNSPECIFIED, UNCOMPLICATED Assessment/Plan Acute COPD Exacerbation r/o CHF Acute Kidney Injury Hypokalemia HTN Hyperlipidemia Smoker - short course of IV medrol - inhaled bronchodilators standing and PRN - O2 to keep SpO2>90% - replete lytes - echocardiogram - smoking cessation - outpt PFTs - DVT prophylaxis Thank you for this consult Huang Benavides MD
[2018-03-13] MEDS ORDERED: ALBUTEROL SO4 0.083% IH SOL 2.5 MG/3 ML VIAL.NEB. NEB PRN (14:23)
--- NOTE | 2018-03-13 14:41 | ECHO ---
Name: DEVON JASMINE Exam:Adult Echocardiogram Study Date: 03/13/2018 08:21 AM Age: 67 yrs Reason For Study: CHECK LVEF Height: 74 in Weight: 220 lb BSA: 2.3 m2 MMode/2D Measurements & Calculations IVSd: 1.1 cm Ao root diam: 2.9 cm LVIDd: 5.3 cm LA dimension: 4.0 cm LVIDs: 3.8 cm LVPWd: 1.1 cm EDV(Teich): 132.9 ml ESV(Teich): 63.7 ml Doppler Measurements & Calculations MV E max yunior: 61.7 cm/sec Med Peak E' Yunior: 5.7 cm/sec MV A max yunior: 79.0 cm/sec Med E/e': 10.8 MV E/A: 0.78 Lat Peak E' Yunior: 7.9 cm/sec MV dec time: 0.24 sec Lat E/e': 7.8 Procedure A two-dimensional transthoracic echocardiogram with color flow and Doppler was performed. The study w as technically difficult with many images being suboptimal in quality. Left Ventricle The left ventricular size, thickness and function are normal. The left ventricular ejection fraction is normal. E/A reversal consistent with but not diagnostic of poor LV compliance. Regional wall motion abnormalities cannot be excluded due to limited visualization. Septal motion is consistent with condu ction abnormality. Right Ventricle The right ventricle is not well visualized. Atria The left atrium is mildly dilated. The right atrium is mildly dilated. Mitral Valve There is mild mitral valve thickening. There is no mitral valve stenosis. There is trace mitral regur gitation. Tricuspid Valve The tricuspid valve is not well visualized. There is no tricuspid stenosis. There was insufficient TR detected to calculate RV systolic pressure. Aortic Valve The aortic valve is not well visualized. No hemodynamically significant valvular aortic stenosis. No aortic regurgitation is present. Great Vessels The aortic root is normal size. Pericardium/Pleura There is no pericardial effusion. Interpretation Summary The left ventricular size, thickness and function are normal The left ventricular ejection fraction is normal. The left atrium is mildly dilated. The right atrium is mildly dilated. There is trace mitral regurgitation. Regional wall motion abnormalities cannot be excluded due to limited visualization. Septal motion is consistent with conduction abnormality. The study was technically difficult with many images being suboptimal in quality. E/A reversal consistent with but not diagnostic of poor LV compliance The right ventricle is not well visualized. There was insufficient TR detected to calculate RV systolic pressure. MD Matt Yusuf 03/13/2018 01:16 PM
[2018-03-13] MEDS: methylPREDNISolone NA SUCC 40 MG/1 ML VIAL IVPUSH SCH ×2 (14:57→18:20)
[2018-03-13] MEDS: ALBUTEROL SO4 2.5/IPRATROPIUM 0.5 INH SOL 3 ML VIAL.NEB. NEB SCH ×2 (15:15→21:05)
--- NOTE | 2018-03-13 18:06 | CON.PSY ---
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 patient seen for DEpression. Patient apparantly stopped taking meds 2 wks . Reports being depresed fort the past month or so. Had been on many SSRI over t5he yheras which he claims have been ineffective. Symptoms: reports: Depressed Mood, Appetite Disturbance, Weight change, Sleep Disturbance - Previous Psychiatric Treatment Outpatient: More than 6 mos ago Inpatient: None - Previous Substance Abuse Treatment Outpatient: None Inpatient: None - Reason for Previous Treatment Reason for Previous Treatment: Major Depression - Current Medications Current Medications: Active Medications Acetaminophen (Tylenol -) 650 mg PO Q6H PRN PRN Reason: PAIN OR FEVER Albuterol Sulfate (Ventolin 0.083% Nebulizer Soln -) 1 amp NEB Q4H PRN PRN Reason: SHORT OF BREATH/WHEEZING Albuterol/Ipratropium (Duoneb -) 1 amp NEB RQID [facility] Last Admin: 03/13/18 15:15 Dose: Not Given Cyanocobalamin (Vitamin B12 Injection -) 1,000 mcg IM DAILY [facility] Last Admin: 03/13/18 13:14 Dose: 1,000 mcg Heparin Sodium (Porcine) (Heparin -) 5,000 unit SQ BID [facility] Last Admin: 03/13/18 09:54 Dose: 5,000 unit Dextrose/Sodium Chloride (Dextrose 5%-Normal Saline+40 Meq Kcl -) 40 meq in 1, 000 mls @ 75 mls/hr IV ASDIR [facility] Methylprednisolone Sodium Succinate (Solu-Medrol -) 40 mg IVPUSH Q8H-IV [facility] Stop: 03/15/18 02:01 Last Admin: 03/13/18 14:57 Dose: 40 mg - Allergies Allergies: Allergies Allergy/AdvReac Type Severity Reaction Status Date / Time No Known Allergies Allergy Verified 03/12/18 15:22 - Current Mental Status Evaluation Appearance: Disheveled Attitude: Cooperative - Affect Affect: Constrictive Appropriateness: Appropriate to Content - Mood Mood: Depressed - Speech/Language Expressive: Coherent - Psychomotor Activity Psychomotor Activity: Slowed - Thought Process Thought Process: Intact - Thought Content Hallucinations: Absent Delusions: Absent - Self Perception Self Perception: No Impairment - Cognition Attention: Alert Orientation: Time Memory, Immediate Recall: Intact Memory, Short Term: 3/3 Memory, Remote with Promptin/3 - Concentration Serial Sevens Intact: Yes Simple Calculations Intact: Yes - Abstraction Proverb Interpretation: Intact Judgement: Minimally Impaired - Insight Insight: Intact - Impulse Control Impulse Control: Minimally Impaired - Suicidal Ideation Suicidal Ideation: No - Homicidal Ideation Homicidal Ideation: No Assessment/Plan 10 Start Remeron 15mg po hs. 2) Patient is not suicidal or Homicidal at this time. 3) Discharge when medically stable. Follow up at [facility].
[2018-03-13] MEDS: D5-NS + 40 MEQ KCL - 40 MEQ/1,000 ML INFUS.BAG IV SCH (18:37)
[2018-03-13] MEDS ORDERED: DEXTROSE 5%-WATER 100 ML IVPB ONE (20:55)
[2018-03-13] MEDS: CEFTRIAXONE 2 GM in DEXTROSE 5%-WATER 100 ML IVPB SCH (21:26)
[2018-03-13] MEDS: MIRTAZAPINE 15 MG TABLET (FP) PO SCH (21:35)
[2018-03-13] MEDS: AZITHROMYCIN IVPB 500 MG in DEXTROSE 5%-WATER - 250 ML IVPB SCH (22:50)
[2018-03-14] MEDS: methylPREDNISolone NA SUCC 40 MG/1 ML VIAL IVPUSH SCH ×3 (02:46→18:06)
[2018-03-14 07:15] LABS: HEMATOCRIT 42.1 % (35.4-49); HEMOGLOBIN 14.4 GM/dL (11.7-16.9); LYMPH % 4.8 % (8-40); MCH 31.6 pg (25.7-33.7); MCHC 34.1 g/dl (32.0-35.9); MEAN CELL VOLUME 92.5 fl (80-96); MEAN PLT VOLUME 10.2 fl (7.5-11.1); MONO % 2.2 % (3.8-10.2); PLATELET COUNT 141 K/MM3 (134-434); RBC 4.56 M/mm3 (4.00-5.60); RDW 13.6 % (11.9-15.9); WHITE BLOOD COUNT 9.2 K/mm3 (4.0-10.0)
[2018-03-14] MEDS: D5-NS + 40 MEQ KCL - 40 MEQ/1,000 ML INFUS.BAG IV SCH ×2 (07:28→14:45)
[2018-03-14] MEDS: ALBUTEROL SO4 2.5/IPRATROPIUM 0.5 INH SOL 3 ML VIAL.NEB. NEB SCH ×4 (07:40→19:51)
[2018-03-14 08:14] LABS: CHLORIDE 98 mmol/L (98-107); SODIUM 140 mmol/L (136-145)
[2018-03-14 08:23] LABS: ALBUMIN 2.6 g/dl (3.4-5.0); ALK PHOS 60 U/L (45-117); ANION GAP 5 MMOL/L (8-16); BILIRUBIN,TOTAL 0.6 mg/dL (0.2-1.0); BLOOD UREA NITROGEN 21 mg/dL (7-18); CALCIUM 8.3 mg/dL (8.5-10.1); CO2 37 mmol/L (21-32); CREATININE 1.4 mg/dL (0.7-1.3); GLUCOSE,RANDOM 119 mg/dL (74-106); SGOT/AST 14 U/L (15-37); SGPT/ALT 21 U/L (12-78); TOT PROT 6.6 g/dl (6.4-8.2)
[2018-03-14] MEDS: CEFTRIAXONE 2 GM in DEXTROSE 5%-WATER 100 ML IVPB SCH (10:01)
[2018-03-14] MEDS ORDERED: PT OWN MED DRAWER 7, Y5N ONE ×2 (10:31→13:20)
[2018-03-14] MEDS: HEPARIN NA (PORCINE) 5,000 UNITS/ML 1ML VIAL SQ SCH ×2 (10:37→22:43)
[2018-03-14] MEDS: CYANOCOBALAMIN (VITAMIN B-12) 1000 MCG/1 ML VIAL IM SCH (10:39)
--- NOTE | 2018-03-14 10:53 | PN ---
Progress Note, Physician Chief Complaint: hypokalemia AMS History of Present Illness: NAD in bed alert and oriented Seen by ID, nephrology and neurology for AMS hypokalemia resolved Performed poorly with physical therapy Seen by Psychiatry for depression, started on remeron 15 mg po HS - Current Medication List Current Medications: Active Medications Acetaminophen (Tylenol -) 650 mg PO Q6H PRN PRN Reason: PAIN OR FEVER Albuterol Sulfate (Ventolin 0.083% Nebulizer Soln -) 1 amp NEB Q4H PRN PRN Reason: SHORT OF BREATH/WHEEZING Albuterol/Ipratropium (Duoneb -) 1 amp NEB RQID [facility] Last Admin: 03/14/18 07:40 Dose: 1 amp Cyanocobalamin (Vitamin B12 Injection -) 1,000 mcg IM DAILY [facility] Last Admin: 03/14/18 10:39 Dose: 1,000 mcg Heparin Sodium (Porcine) (Heparin -) 5,000 unit SQ BID [facility] Last Admin: 03/14/18 10:37 Dose: 5,000 unit Dextrose/Sodium Chloride (Dextrose 5%-Normal Saline+40 Meq Kcl -) 40 meq in 1, 000 mls @ 75 mls/hr IV ASDIR [facility] Last Admin: 03/14/18 07:28 Dose: 75 mls/hr Ceftriaxone Sodium 2 gm/ (Dextrose) 100 mls @ 100 mls/hr IVPB DAILY [facility]; Protocol Last Admin: 03/13/18 21:26 Dose: 100 mls/hr Azithromycin 500 mg/ Dextrose 250 mls @ 250 mls/hr IVPB DAILY [facility] Last Admin: 03/13/18 22:50 Dose: 250 mls/hr Methylprednisolone Sodium Succinate (Solu-Medrol -) 40 mg IVPUSH Q8H-IV [facility] Stop: 03/15/18 02:01 Last Admin: 03/14/18 10:34 Dose: 40 mg Mirtazapine (Remeron -) 15 mg PO HS [facility] Last Admin: 03/13/18 21:35 Dose: 15 mg - Objective Vital Signs: Vital Signs Temperature 98.7 F 03/14/18 09:59 Pulse Rate 92 H 03/14/18 09:59 Respiratory Rate 20 03/14/18 09:59 Blood Pressure 164/76 03/14/18 09:59 O2 Sat by Pulse Oximetry (%) 97 03/13/18 21:00 Constitutional: Yes: Well Nourished, No Distress, Calm Cardiovascular: Yes: Regular Rate and Rhythm Respiratory: Yes: Regular Gastrointestinal: Yes: Normal Bowel Sounds, Soft Musculoskeletal: Yes: Muscle Weakness Edema: No Neurological: Yes: Alert, Oriented Psychiatric: Yes: Alert, Oriented Labs: CBC, BMP 03/14/18 06:00 03/14/18 06:00 INR, PTT INR 1.14 (0.83-1.09) H 03/12/18 15:15 Problem List - Problems (1) Acute renal failure Assessment/Plan: -nephrology -IVF -Cr improving -Monitor Cr Code(s): N17.9 - ACUTE KIDNEY FAILURE, UNSPECIFIED Qualifiers: Acute renal failure type: unspecified Qualified Code(s): N17.9 - Acute kidney failure, unspecified (2) Altered mental status Assessment/Plan: 2/ metabolic encephalopathy -Head CT negative -Seen by neurology Code(s): R41.82 - ALTERED MENTAL STATUS, UNSPECIFIED (3) Hypokalemia Assessment/Plan: -resolved -nephrology on board -IVF with D5+KCl40 meq -monitor trend Code(s): E87.6 - HYPOKALEMIA (4) PNA (pneumonia) Assessment/Plan: -ID on board -IV abx -Pulmonary consult -Bronchodilators -IV medrol as per pulmonary Code(s): J18.9 - PNEUMONIA, UNSPECIFIED ORGANISM (5) Toxic metabolic encephalopathy Assessment/Plan: -mental status improved -UC/BC pending -afebrile -ID consult -IV abx Code(s): G92 - TOXIC ENCEPHALOPATHY (6) Depression Assessment/Plan: -seen by Psychiatry -Remeron 15 mg po HS -Follow up at [facility] outpatient Code(s): F32.9 - MAJOR DEPRESSIVE DISORDER, SINGLE EPISODE, UNSPECIFIED Assessment/Plan see problem list did poorly with Physical therapy SNF candidate
[2018-03-14] MEDS ORDERED: DEXTROSE 5%-WATER 100 ML IVPB ONE (11:08)
[2018-03-14 11:37] LABS: ANISOCYTOSIS 1+; MACROCYTOSIS 1+; PLATELET ESTIMATE NORMAL
--- NOTE | 2018-03-14 13:06 | PN ---
Progress Note, Physician History of Present Illness: PULMONARY ALERT,NO DISTRESS,+ OCC COUGH - Current Medication List Current Medications: Active Medications Acetaminophen (Tylenol -) 650 mg PO Q6H PRN PRN Reason: PAIN OR FEVER Albuterol Sulfate (Ventolin 0.083% Nebulizer Soln -) 1 amp NEB Q4H PRN PRN Reason: SHORT OF BREATH/WHEEZING Albuterol/Ipratropium (Duoneb -) 1 amp NEB RQID [facility] Last Admin: 03/14/18 11:13 Dose: Not Given Cyanocobalamin (Vitamin B12 Injection -) 1,000 mcg IM DAILY [facility] Last Admin: 03/14/18 10:39 Dose: 1,000 mcg Heparin Sodium (Porcine) (Heparin -) 5,000 unit SQ BID [facility] Last Admin: 03/14/18 10:37 Dose: 5,000 unit Dextrose/Sodium Chloride (Dextrose 5%-Normal Saline+40 Meq Kcl -) 40 meq in 1, 000 mls @ 75 mls/hr IV ASDIR [facility] Last Admin: 03/14/18 07:28 Dose: 75 mls/hr Ceftriaxone Sodium 2 gm/ (Dextrose) 100 mls @ 100 mls/hr IVPB DAILY [facility]; Protocol Last Admin: 03/14/18 10:01 Dose: 100 mls/hr Azithromycin 500 mg/ Dextrose 250 mls @ 250 mls/hr IVPB DAILY [facility] Last Admin: 03/13/18 22:50 Dose: 250 mls/hr Methylprednisolone Sodium Succinate (Solu-Medrol -) 40 mg IVPUSH Q8H-IV [facility] Stop: 03/15/18 02:01 Last Admin: 03/14/18 10:34 Dose: 40 mg Mirtazapine (Remeron -) 15 mg PO HS [facility] Last Admin: 03/13/18 21:35 Dose: 15 mg - Objective Vital Signs: Vital Signs Temperature 98.7 F 03/14/18 09:59 Pulse Rate 92 H 03/14/18 09:59 Respiratory Rate 20 03/14/18 09:59 Blood Pressure 164/76 03/14/18 09:59 O2 Sat by Pulse Oximetry (%) 97 03/13/18 21:00 Constitutional: Yes: Well Nourished, Calm Eyes: Yes: WNL HENT: Yes: WNL Neck: Yes: WNL Cardiovascular: Yes: Regular Rate and Rhythm, S1, S2 Respiratory: Yes: Rhonchi (SCATTERED RHONCHI) Gastrointestinal: Yes: Normal Bowel Sounds, Soft Extremities: Yes: WNL Edema: No Labs: CBC, BMP 03/14/18 06:00 03/14/18 06:00 INR, PTT INR 1.14 (0.83-1.09) H 03/12/18 15:15 Assessment/Plan Problem List - Problems (1) Altered mental status Code(s): R41.82 - ALTERED MENTAL STATUS, UNSPECIFIED (2) Hypokalemia Code(s): E87.6 - HYPOKALEMIA (3) Acute renal failure Code(s): N17.9 - ACUTE KIDNEY FAILURE, UNSPECIFIED Qualifiers: Acute renal failure type: unspecified Qualified Code(s): N17.9 - Acute kidney failure, unspecified (4) COPD with acute exacerbation Code(s): J44.1 - CHRONIC OBSTRUCTIVE PULMONARY DISEASE W (ACUTE) EXACERBATION (5) Smoker Code(s): F17.200 - NICOTINE DEPENDENCE, UNSPECIFIED, UNCOMPLICATED Assessment/Plan Acute COPD Exacerbation r/o CHF Acute Kidney Injury Hypokalemia HTN Hyperlipidemia Smoker - IV medrol - inhaled bronchodilators standing and PRN - O2 to keep SpO2>90% - replete lytes - smoking cessation - outpt PFTs - DVT prophylaxis DR PAGE
[2018-03-14] MEDS: AZITHROMYCIN IVPB 500 MG in DEXTROSE 5%-WATER - 250 ML IVPB SCH (14:45)
--- NOTE | 2018-03-14 15:06 | PN ---
Progress Note, Physician History of Present Illness: Awake, weak appearing Supine in bed + moist cough Breathing non labored on nasal cannula No c/o chest pain No c/o fever/ chills - Current Medication List Current Medications: Active Medications Acetaminophen (Tylenol -) 650 mg PO Q6H PRN PRN Reason: PAIN OR FEVER Albuterol Sulfate (Ventolin 0.083% Nebulizer Soln -) 1 amp NEB Q4H PRN PRN Reason: SHORT OF BREATH/WHEEZING Albuterol/Ipratropium (Duoneb -) 1 amp NEB RQID [facility] Last Admin: 03/14/18 11:13 Dose: Not Given Cyanocobalamin (Vitamin B12 Injection -) 1,000 mcg IM DAILY [facility] Last Admin: 03/14/18 10:39 Dose: 1,000 mcg Heparin Sodium (Porcine) (Heparin -) 5,000 unit SQ BID [facility] Last Admin: 03/14/18 10:37 Dose: 5,000 unit Dextrose/Sodium Chloride (Dextrose 5%-Normal Saline+40 Meq Kcl -) 40 meq in 1, 000 mls @ 75 mls/hr IV ASDIR [facility] Last Admin: 03/14/18 14:45 Dose: 75 mls/hr Ceftriaxone Sodium 2 gm/ (Dextrose) 100 mls @ 100 mls/hr IVPB DAILY [facility]; Protocol Last Admin: 03/14/18 10:01 Dose: 100 mls/hr Azithromycin 500 mg/ Dextrose 250 mls @ 250 mls/hr IVPB DAILY [facility] Last Admin: 03/14/18 14:45 Dose: 250 mls/hr Methylprednisolone Sodium Succinate (Solu-Medrol -) 40 mg IVPUSH Q8H-IV [facility] Stop: 03/15/18 02:01 Last Admin: 03/14/18 10:34 Dose: 40 mg Mirtazapine (Remeron -) 15 mg PO HS [facility] Last Admin: 03/13/18 21:35 Dose: 15 mg - Objective Vital Signs: Vital Signs Temperature 97.7 F 03/14/18 14:57 Pulse Rate 84 03/14/18 14:57 Respiratory Rate 20 03/14/18 09:59 Blood Pressure 158/83 03/14/18 14:57 O2 Sat by Pulse Oximetry (%) 97 03/13/18 21:00 Constitutional: Yes: No Distress, Obese Eyes: Yes: Conjunctiva Clear Cardiovascular: Yes: Regular Rate and Rhythm, S1, S2 Respiratory: Yes: Rhonchi, Other (+ rhonchi R lung field) Gastrointestinal: Yes: Normal Bowel Sounds, Soft. No: Tenderness Edema: Yes Edema: LLE: 1+, RLE: 1+ Labs: CBC, BMP 03/14/18 06:00 03/14/18 06:00 INR, PTT INR 1.14 (0.83-1.09) H 03/12/18 15:15 Assessment/Plan ? R pneumonia R/O sepsis secondary to pneumonia Toxic metabolic encephalopathy- improved Azotemia-improved Await c/s Continue zithromax/ ceftriaxone
--- NOTE | 2018-03-14 16:24 | PN ---
Progress Note, Physician History of Present Illness: Pt seen and examined at bedside. He is awake and more alert. His PO intake is markedly improved. - Current Medication List Current Medications: Active Medications Acetaminophen (Tylenol -) 650 mg PO Q6H PRN PRN Reason: PAIN OR FEVER Albuterol Sulfate (Ventolin 0.083% Nebulizer Soln -) 1 amp NEB Q4H PRN PRN Reason: SHORT OF BREATH/WHEEZING Albuterol/Ipratropium (Duoneb -) 1 amp NEB RQID [facility] Last Admin: 03/14/18 11:13 Dose: Not Given Cyanocobalamin (Vitamin B12 Injection -) 1,000 mcg IM DAILY [facility] Last Admin: 03/14/18 10:39 Dose: 1,000 mcg Heparin Sodium (Porcine) (Heparin -) 5,000 unit SQ BID [facility] Last Admin: 03/14/18 10:37 Dose: 5,000 unit Dextrose/Sodium Chloride (Dextrose 5%-Normal Saline+40 Meq Kcl -) 40 meq in 1, 000 mls @ 75 mls/hr IV ASDIR [facility] Last Admin: 03/14/18 14:45 Dose: 75 mls/hr Ceftriaxone Sodium 2 gm/ (Dextrose) 100 mls @ 100 mls/hr IVPB DAILY [facility]; Protocol Last Admin: 03/14/18 10:01 Dose: 100 mls/hr Azithromycin 500 mg/ Dextrose 250 mls @ 250 mls/hr IVPB DAILY [facility] Last Admin: 03/14/18 14:45 Dose: 250 mls/hr Methylprednisolone Sodium Succinate (Solu-Medrol -) 40 mg IVPUSH Q8H-IV [facility] Stop: 03/15/18 02:01 Last Admin: 03/14/18 10:34 Dose: 40 mg Mirtazapine (Remeron -) 15 mg PO HS [facility] Last Admin: 03/13/18 21:35 Dose: 15 mg - Objective Vital Signs: Vital Signs Temperature 97.7 F 03/14/18 14:57 Pulse Rate 84 03/14/18 14:57 Respiratory Rate 20 03/14/18 09:59 Blood Pressure 158/83 03/14/18 14:57 O2 Sat by Pulse Oximetry (%) 97 03/13/18 21:00 Constitutional: Yes: Calm Eyes: Yes: Conjunctiva Clear HENT: Yes: Atraumatic Cardiovascular: Yes: S1, S2 Respiratory: Yes: CTA Bilaterally Genitourinary: Yes: WNL Musculoskeletal: Yes: WNL Edema: No Neurological: Yes: Confusion Labs: CBC, BMP 03/14/18 06:00 03/14/18 06:00 INR, PTT INR 1.14 (0.83-1.09) H 03/12/18 15:15 Problem List - Problems (1) Acute renal failure Code(s): N17.9 - ACUTE KIDNEY FAILURE, UNSPECIFIED Qualifiers: Acute renal failure type: unspecified Qualified Code(s): N17.9 - Acute kidney failure, unspecified (2) Altered mental status Code(s): R41.82 - ALTERED MENTAL STATUS, UNSPECIFIED (3) Hypokalemia Code(s): E87.6 - HYPOKALEMIA (4) Sepsis Code(s): A41.9 - SEPSIS, UNSPECIFIED ORGANISM (5) Toxic metabolic encephalopathy Code(s): G92 - TOXIC ENCEPHALOPATHY Assessment/Plan Current Medications Generic Name Dose Route Start Last Admin Trade Name Freq PRN Reason Stop Dose Admin Acetaminophen 650 mg 03/12/18 18:09 Tylenol - PO Q6H PRN PAIN OR FEVER Albuterol Sulfate 1 amp 03/13/18 14:23 Ventolin 0.083% Nebulizer Soln - NEB Q4H PRN SHORT OF BREATH/WHEEZING Albuterol/Ipratropium 1 amp 03/13/18 16:00 03/14/18 11:13 Duoneb - NEB Not Given RQID [facility] Cyanocobalamin 1,000 mcg 03/13/18 12:45 03/14/18 10:39 Vitamin B12 Injection - IM 1,000 mcg DAILY [facility] Administration Heparin Sodium (Porcine) 5,000 unit 03/12/18 22:00 03/14/18 10:37 Heparin - SQ 5,000 unit BID [facility] Administration Dextrose/Sodium Chloride 40 meq in 1,000 mls @ 75 mls/hr 03/13/18 12:41 03/14 14:45 Dextrose 5%-Normal Saline+40 Meq Kcl - IV 75 mls/hr ASDIR [facility] Administration Ceftriaxone Sodium 2 gm/ 100 mls @ 100 mls/hr 03/13/18 19:30 03/14/18 10:01 Dextrose IVPB 100 mls/hr DAILY [facility] Administration Protocol Azithromycin 500 mg/ Dextrose 250 mls @ 250 mls/hr 03/13/18 19:30 03/14/18 14 :45 IVPB 250 mls/hr DAILY [facility] Administration Methylprednisolone Sodium Succinate 40 mg 03/13/18 14:30 03/14/18 10:34 Solu-Medrol - IVPUSH 03/15/18 02:01 40 mg Q8H-IV [facility] Administration Mirtazapine 15 mg 03/13/18 22:00 03/13/18 21:35 Remeron - PO 15 mg HS [facility] Administration Laboratory Tests 03/12/18 15:10 Creatine Kinase 202 Impression 1. HINA 2. hypokalemia 3. diarrhea 4. altered mental status Plan - renal function continues to improve - potassium improved - repeat labs in am - HINA likely from prolonged pre-renal disease - will follow pt Dr Cole
--- NOTE | 2018-03-14 17:51 | CON.PSL ---
Psychology Consult Consult Specialty:: Clinical Psychology Reason for Consultation:: Depression and Anxiety History Provided By: Patient Limitations to Obtaining History: No Limitations Current Medications: Active Medications Acetaminophen (Tylenol -) 650 mg PO Q6H PRN PRN Reason: PAIN OR FEVER Albuterol Sulfate (Ventolin 0.083% Nebulizer Soln -) 1 amp NEB Q4H PRN PRN Reason: SHORT OF BREATH/WHEEZING Albuterol/Ipratropium (Duoneb -) 1 amp NEB RQID [facility] Last Admin: 03/14/18 11:13 Dose: Not Given Cyanocobalamin (Vitamin B12 Injection -) 1,000 mcg IM DAILY [facility] Last Admin: 03/14/18 10:39 Dose: 1,000 mcg Heparin Sodium (Porcine) (Heparin -) 5,000 unit SQ BID [facility] Last Admin: 03/14/18 10:37 Dose: 5,000 unit Dextrose/Sodium Chloride (Dextrose 5%-Normal Saline+40 Meq Kcl -) 40 meq in 1, 000 mls @ 75 mls/hr IV ASDIR [facility] Last Admin: 03/14/18 14:45 Dose: 75 mls/hr Ceftriaxone Sodium 2 gm/ (Dextrose) 100 mls @ 100 mls/hr IVPB DAILY [facility]; Protocol Last Admin: 03/14/18 10:01 Dose: 100 mls/hr Azithromycin 500 mg/ Dextrose 250 mls @ 250 mls/hr IVPB DAILY [facility] Last Admin: 03/14/18 14:45 Dose: 250 mls/hr Methylprednisolone Sodium Succinate (Solu-Medrol -) 40 mg IVPUSH Q8H-IV [facility] Stop: 03/15/18 02:01 Last Admin: 03/14/18 10:34 Dose: 40 mg Mirtazapine (Remeron -) 15 mg PO HS [facility] Last Admin: 03/13/18 21:35 Dose: 15 mg Allergies: Allergies Allergy/AdvReac Type Severity Reaction Status Date / Time No Known Allergies Allergy Verified 03/12/18 15:22 Does patient have pain?: No (He did not indicat that pain was an issue.) Hx Alcohol Use: Yes Hx Substance Use: No Substance Use Type: Alcohol Hx Substance Use Treatment: Yes (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.) Current Medical Exam-Psy Orientation: Time, Person, Place Immediate Term Memory: 3/3 Expressive: Coherent Receptive: Age Appropriate Comprehension of Spoken Words Hallucinations: Absent Thought Process: Intact Depression: Severe Hopelessness: Yes Loss of Interest: No Anxiety Level: Severe Danger to Self and Others: No Sleep: Fair Appetite: Fair (He is upset that the food he orders is not the food he rceives even when it is approvd by the Nutrition Dept.) Problem List - Problem (1) Depression, major, recurrent Code(s): F33.9 - MAJOR DEPRESSIVE DISORDER, RECURRENT, UNSPECIFIED Qualifiers: Active/Remission status: currently active Major depression episode severity : severe Psychotic features: without psychotic features Qualified Code(s): F33.2 - Major depressive disorder, recurrent severe without psychotic features (2) Anxiety about health Code(s): F41.8 - OTHER SPECIFIED ANXIETY DISORDERS (3) Smoking addiction Code(s): F17.200 - NICOTINE DEPENDENCE, UNSPECIFIED, UNCOMPLICATED Assessment/Plan The patient will be seen for cognitive behavior and supportive therapy. In addition, hypnosis for smoking cessation and anxiety will be applied.
[2018-03-14] MEDS: MIRTAZAPINE 15 MG TABLET (FP) PO SCH (22:43)
[2018-03-15] MEDS: methylPREDNISolone NA SUCC 40 MG/1 ML VIAL IVPUSH SCH (01:44)
[2018-03-15] MEDS: D5-NS + 40 MEQ KCL - 40 MEQ/1,000 ML INFUS.BAG IV SCH ×2 (01:46→21:33)
[2018-03-15] MEDS: ALBUTEROL SO4 2.5/IPRATROPIUM 0.5 INH SOL 3 ML VIAL.NEB. NEB SCH ×4 (07:35→21:09)
[2018-03-15 07:42] LABS: BASO % 0.5 % (0-2.0); HEMATOCRIT 38.3 % (35.4-49); HEMOGLOBIN 13.3 GM/dL (11.7-16.9); LYMPH % 6.9 % (8-40); MCHC 34.7 g/dl (32.0-35.9); MEAN CELL VOLUME 92.2 fl (80-96); MEAN PLT VOLUME 9.4 fl (7.5-11.1); MONO % 3.3 % (3.8-10.2); NEUT % 89.3 % (42.8-82.8); PLATELET COUNT 127 K/MM3 (134-434); RBC 4.15 M/mm3 (4.00-5.60); RDW 13.5 % (11.9-15.9); WHITE BLOOD COUNT 8.3 K/mm3 (4.0-10.0)
[2018-03-15 08:30] LABS: ANION GAP 8 MMOL/L (8-16); BLOOD UREA NITROGEN 19 mg/dL (7-18); CALCIUM 8.1 mg/dL (8.5-10.1); CHLORIDE 100 mmol/L (98-107); CO2 35 mmol/L (21-32); GLUCOSE,RANDOM 130 mg/dL (74-106); POTASSIUM 3.7 mmol/L (3.5-5.1); SODIUM 143 mmol/L (136-145)
[2018-03-15] MEDS ORDERED: DEXTROSE 5%-WATER 100 ML IVPB ONE (09:40)
[2018-03-15] MEDS ORDERED: PT OWN MED DRAWER 7, Y5N ONE (09:40)
[2018-03-15] MEDS: HEPARIN NA (PORCINE) 5,000 UNITS/ML 1ML VIAL SQ SCH ×2 (09:54→21:35)
[2018-03-15] MEDS: CEFTRIAXONE 2 GM in DEXTROSE 5%-WATER 100 ML IVPB SCH (09:54)
[2018-03-15] MEDS: CYANOCOBALAMIN (VITAMIN B-12) 1000 MCG/1 ML VIAL IM SCH (09:58)
--- NOTE | 2018-03-15 10:33 | PN ---
Progress Note, [employer] - Note Progress Note: Tolerating diet. More responsive and social. Selected Entries 03/14/18 03/14/18 03/14/18 06:16 09:48 09:59 Breakfast 75% Lunch Supper Temperature 97.7 F 98.7 F 03/14/18 03/14/18 03/14/18 12:31 14:57 22:35 Breakfast Lunch 75% Supper 100% Temperature 97.7 F 98.4 F 03/15/18 05:34 Breakfast Lunch Supper Temperature 98.6 F Laboratory Tests 03/15/18 06:30 WBC 8.3 No further f/u indicated.
--- NOTE | 2018-03-15 11:25 | PN ---
Progress Note (short form) - Note Progress Note: PULMONARY ALERT,NO DISTRESS,+ OCC COUGH/SPEAKING ON PHONE VSS Constitutional: Yes: Well Nourished, Calm Eyes: Yes: WNL HENT: Yes: WNL Neck: Yes: WNL Cardiovascular: Yes: Regular Rate and Rhythm, S1, S2 Respiratory: Yes: Rhonchi (SCATTERED RHONCHI) Gastrointestinal: Yes: Normal Bowel Sounds, Soft Extremities: Yes: WNL Edema: No LABS/MEDS/NOTES/IMAGES NOTED Acute COPD Exacerbation r/o CHF Acute Kidney Injury Hypokalemia HTN Hyperlipidemia Smoker - IV medrol discontinued - inhaled bronchodilators standing and PRN - O2 to keep SpO2>90% - replete lytes as needed - smoking cessation - outpt PFTs - DVT prophylaxis Jake YOUNG MD
[2018-03-15] MEDS: AZITHROMYCIN IVPB 500 MG in DEXTROSE 5%-WATER - 250 ML IVPB SCH (11:32)
--- NOTE | 2018-03-15 12:29 | PN ---
Progress Note, Physician History of Present Illness: More awake and alert No c/o cheat pain/ dyspnea + moist cough Breathing non labored on nasal cannula No c/o fever/ chills - Current Medication List Current Medications: Active Medications Acetaminophen (Tylenol -) 650 mg PO Q6H PRN PRN Reason: PAIN OR FEVER Albuterol Sulfate (Ventolin 0.083% Nebulizer Soln -) 1 amp NEB Q4H PRN PRN Reason: SHORT OF BREATH/WHEEZING Albuterol/Ipratropium (Duoneb -) 1 amp NEB RQID [facility] Last Admin: 03/15/18 11:45 Dose: 1 amp Cyanocobalamin (Vitamin B12 Injection -) 1,000 mcg IM DAILY [facility] Last Admin: 03/15/18 09:58 Dose: 1,000 mcg Heparin Sodium (Porcine) (Heparin -) 5,000 unit SQ BID [facility] Last Admin: 03/15/18 09:54 Dose: 5,000 unit Dextrose/Sodium Chloride (Dextrose 5%-Normal Saline+40 Meq Kcl -) 40 meq in 1, 000 mls @ 75 mls/hr IV ASDIR [facility] Last Admin: 03/15/18 01:46 Dose: 75 mls/hr Ceftriaxone Sodium 2 gm/ (Dextrose) 100 mls @ 100 mls/hr IVPB DAILY [facility]; Protocol Last Admin: 03/15/18 09:54 Dose: 100 mls/hr Azithromycin 500 mg/ Dextrose 250 mls @ 250 mls/hr IVPB DAILY [facility] Last Admin: 03/15/18 11:32 Dose: 250 mls/hr Mirtazapine (Remeron -) 15 mg PO HS [facility] Last Admin: 03/14/18 22:43 Dose: 15 mg - Objective Vital Signs: Vital Signs Temperature 98.6 F 03/15/18 05:34 Pulse Rate 85 03/15/18 05:34 Respiratory Rate 20 03/15/18 05:34 Blood Pressure 158/84 03/15/18 05:34 O2 Sat by Pulse Oximetry (%) 97 03/14/18 21:00 Constitutional: Yes: No Distress Eyes: Yes: Conjunctiva Clear Cardiovascular: Yes: Regular Rate and Rhythm, S1, S2 Respiratory: Yes: Rhonchi Gastrointestinal: Yes: Normal Bowel Sounds, Soft. No: Tenderness Edema: Yes Edema: LLE: 1+, RLE: 1+ Labs: CBC, BMP 03/15/18 06:30 03/15/18 06:30 INR, PTT INR 1.14 (0.83-1.09) H 03/12/18 15:15 Assessment/Plan ? R pneumonia R/O sepsis secondary to pneumonia Toxic metabolic encephalopathy- improved Azotemia-improved Continue zithromax/ ceftriaxone Repeat CXR
--- NOTE | 2018-03-15 12:53 | PN ---
Progress Note, Physician Chief Complaint: hypokalemia AMS History of Present Illness: NAD in bed alert and oriented Seen by ID, nephrology and neurology for AMS hypokalemia resolved Seen by Psychiatry for depression, started on remeron 15 mg po HS On IV abx for Pneumonia repeat CXR pending - Current Medication List Current Medications: Active Medications Acetaminophen (Tylenol -) 650 mg PO Q6H PRN PRN Reason: PAIN OR FEVER Albuterol Sulfate (Ventolin 0.083% Nebulizer Soln -) 1 amp NEB Q4H PRN PRN Reason: SHORT OF BREATH/WHEEZING Albuterol/Ipratropium (Duoneb -) 1 amp NEB RQID [facility] Last Admin: 03/15/18 11:45 Dose: 1 amp Cyanocobalamin (Vitamin B12 Injection -) 1,000 mcg IM DAILY [facility] Last Admin: 03/15/18 09:58 Dose: 1,000 mcg Heparin Sodium (Porcine) (Heparin -) 5,000 unit SQ BID [facility] Last Admin: 03/15/18 09:54 Dose: 5,000 unit Dextrose/Sodium Chloride (Dextrose 5%-Normal Saline+40 Meq Kcl -) 40 meq in 1, 000 mls @ 75 mls/hr IV ASDIR [facility] Last Admin: 03/15/18 01:46 Dose: 75 mls/hr Ceftriaxone Sodium 2 gm/ (Dextrose) 100 mls @ 100 mls/hr IVPB DAILY [facility]; Protocol Last Admin: 03/15/18 09:54 Dose: 100 mls/hr Azithromycin 500 mg/ Dextrose 250 mls @ 250 mls/hr IVPB DAILY [facility] Last Admin: 03/15/18 11:32 Dose: 250 mls/hr Mirtazapine (Remeron -) 15 mg PO HS [facility] Last Admin: 03/14/18 22:43 Dose: 15 mg - Objective Vital Signs: Vital Signs Temperature 98.6 F 03/15/18 05:34 Pulse Rate 85 03/15/18 05:34 Respiratory Rate 20 03/15/18 05:34 Blood Pressure 158/84 03/15/18 05:34 O2 Sat by Pulse Oximetry (%) 97 03/14/18 21:00 Constitutional: Yes: Well Nourished, No Distress, Calm, Poor Hygeine Cardiovascular: Yes: Regular Rate and Rhythm Respiratory: Yes: Regular, On Nasal O2, Rhonchi (diffuse) Musculoskeletal: Yes: Muscle Weakness Edema: No Peripheral Pulses WNL: Yes Neurological: Yes: Alert, Oriented Psychiatric: Yes: Alert, Oriented Labs: CBC, BMP 03/15/18 06:30 03/15/18 06:30 INR, PTT INR 1.14 (0.83-1.09) H 03/12/18 15:15 Problem List - Problems (1) Acute renal failure Assessment/Plan: -nephrology -IVF -Cr improving -Monitor Cr Code(s): N17.9 - ACUTE KIDNEY FAILURE, UNSPECIFIED Qualifiers: Acute renal failure type: unspecified Qualified Code(s): N17.9 - Acute kidney failure, unspecified (2) Altered mental status Assessment/Plan: 2/2 metabolic encephalopathy -Head CT negative -Seen by neurology Code(s): R41.82 - ALTERED MENTAL STATUS, UNSPECIFIED (3) Hypokalemia Assessment/Plan: -resolved -nephrology on board -IVF with D5+KCl40 meq -monitor trend Code(s): E87.6 - HYPOKALEMIA (4) PNA (pneumonia) Assessment/Plan: -ID on board -IV abx -Pulmonary consult -Bronchodilators -Repeat CXR Code(s): J18.9 - PNEUMONIA, UNSPECIFIED ORGANISM (5) Toxic metabolic encephalopathy Assessment/Plan: -mental status improved -UC/BC: Microbiology 03/12/18 15:30 Blood - Peripheral Venous Blood Culture - Preliminary NO GROWTH OBTAINED AFTER 48 HOURS, INCUBATION TO CONTINUE FOR 3 DAYS. 03/12/18 16:04 Blood - Peripheral Venous Blood Culture - Preliminary NO GROWTH OBTAINED AFTER 48 HOURS, INCUBATION TO CONTINUE FOR 3 DAYS. 03/12/18 15:10 Urine - Urine - Catheterized Urine Culture - Final 03/13/18 12:40 Urine For Antigen Detection Legionella Antigen - Final 03/13/18 12:40 Urine For Antigen Detection Streptococcus pneumoniae Antigen (M - Final -afebrile -ID consult -IV abx Code(s): G92 - TOXIC ENCEPHALOPATHY (6) Depression Assessment/Plan: -seen by Psychiatry -Remeron 15 mg po HS -Follow up at [facility] outpatient Code(s): F32.9 - MAJOR DEPRESSIVE DISORDER, SINGLE EPISODE, UNSPECIFIED Assessment/Plan see problem list SNF candidate
[2018-03-15] MEDS ORDERED: POTASSIUM CHLORIDE TABS 20 MEQ TABLET.ER (FP) PO ONE (14:10)
--- NOTE | 2018-03-15 14:10 | PN ---
Progress Note, Physician History of Present Illness: Pt seen and examined at bedside. He is tolerating diet. He denies abdominal pain. - Current Medication List Current Medications: Active Medications Acetaminophen (Tylenol -) 650 mg PO Q6H PRN PRN Reason: PAIN OR FEVER Albuterol Sulfate (Ventolin 0.083% Nebulizer Soln -) 1 amp NEB Q4H PRN PRN Reason: SHORT OF BREATH/WHEEZING Albuterol/Ipratropium (Duoneb -) 1 amp NEB RQID [facility] Last Admin: 03/15/18 11:45 Dose: 1 amp Cyanocobalamin (Vitamin B12 Injection -) 1,000 mcg IM DAILY [facility] Last Admin: 03/15/18 09:58 Dose: 1,000 mcg Heparin Sodium (Porcine) (Heparin -) 5,000 unit SQ BID [facility] Last Admin: 03/15/18 09:54 Dose: 5,000 unit Dextrose/Sodium Chloride (Dextrose 5%-Normal Saline+40 Meq Kcl -) 40 meq in 1, 000 mls @ 75 mls/hr IV ASDIR [facility] Last Admin: 03/15/18 01:46 Dose: 75 mls/hr Ceftriaxone Sodium 2 gm/ (Dextrose) 100 mls @ 100 mls/hr IVPB DAILY [facility]; Protocol Last Admin: 03/15/18 09:54 Dose: 100 mls/hr Azithromycin 500 mg/ Dextrose 250 mls @ 250 mls/hr IVPB DAILY [facility] Last Admin: 03/15/18 11:32 Dose: 250 mls/hr Mirtazapine (Remeron -) 15 mg PO HS [facility] Last Admin: 03/14/18 22:43 Dose: 15 mg - Objective Vital Signs: Vital Signs Temperature 98.6 F 03/15/18 05:34 Pulse Rate 85 03/15/18 05:34 Respiratory Rate 20 03/15/18 05:34 Blood Pressure 158/84 03/15/18 05:34 O2 Sat by Pulse Oximetry (%) 97 03/14/18 21:00 Constitutional: Yes: Calm Eyes: Yes: Conjunctiva Clear HENT: Yes: Atraumatic Neck: Yes: Supple Cardiovascular: Yes: S1, S2 Respiratory: Yes: CTA Bilaterally Gastrointestinal: Yes: Normal Bowel Sounds, Soft Genitourinary: Yes: WNL Musculoskeletal: Yes: WNL Edema: No Integumentary: Yes: WNL Neurological: Yes: Confusion Labs: CBC, BMP 03/15/18 06:30 03/15/18 06:30 INR, PTT INR 1.14 (0.83-1.09) H 03/12/18 15:15 Problem List - Problems (1) Acute renal failure Code(s): N17.9 - ACUTE KIDNEY FAILURE, UNSPECIFIED Qualifiers: Acute renal failure type: unspecified Qualified Code(s): N17.9 - Acute kidney failure, unspecified (2) Altered mental status Code(s): R41.82 - ALTERED MENTAL STATUS, UNSPECIFIED (3) Hypokalemia Code(s): E87.6 - HYPOKALEMIA (4) Sepsis Code(s): A41.9 - SEPSIS, UNSPECIFIED ORGANISM (5) Toxic metabolic encephalopathy Code(s): G92 - TOXIC ENCEPHALOPATHY Assessment/Plan Current Medications Generic Name Dose Route Start Last Admin Trade Name Freq PRN Reason Stop Dose Admin Acetaminophen 650 mg 03/12/18 18:09 Tylenol - PO Q6H PRN PAIN OR FEVER Albuterol Sulfate 1 amp 03/13/18 14:23 Ventolin 0.083% Nebulizer Soln - NEB Q4H PRN SHORT OF BREATH/WHEEZING Albuterol/Ipratropium 1 amp 03/13/18 16:00 03/15/18 11:45 Duoneb - NEB 1 amp RQID [facility] Administration Cyanocobalamin 1,000 mcg 03/13/18 12:45 03/15/18 09:58 Vitamin B12 Injection - IM 1,000 mcg DAILY [facility] Administration Heparin Sodium (Porcine) 5,000 unit 03/12/18 22:00 03/15/18 09:54 Heparin - SQ 5,000 unit BID [facility] Administration Dextrose/Sodium Chloride 40 meq in 1,000 mls @ 75 mls/hr 03/13/18 12:41 03/15 01:46 Dextrose 5%-Normal Saline+40 Meq Kcl - IV 75 mls/hr ASDIR [facility] Administration Ceftriaxone Sodium 2 gm/ 100 mls @ 100 mls/hr 03/13/18 19:30 03/15/18 09:54 Dextrose IVPB 100 mls/hr DAILY [facility] Administration Protocol Azithromycin 500 mg/ Dextrose 250 mls @ 250 mls/hr 03/13/18 19:30 03/15/18 11 :32 IVPB 250 mls/hr DAILY [facility] Administration Mirtazapine 15 mg 03/13/18 22:00 03/14/18 22:43 Remeron - PO 15 mg HS [facility] Administration Impression 1. HINA 2. hypokalemia 3. diarrhea 4. altered mental status Plan - renal function has stabilized - replace potassium - check mag - repeat labs in am - HINA likely from prolonged pre-renal disease Dr Cole
[2018-03-15] MEDS: MIRTAZAPINE 15 MG TABLET (FP) PO SCH (21:35)
[2018-03-15] MEDS ORDERED: INSULIN (NOVOLOG) ASPART 100 UNITS/ML 10ML VIAL ONE (22:04)
[2018-03-16] MEDS: ALBUTEROL SO4 2.5/IPRATROPIUM 0.5 INH SOL 3 ML VIAL.NEB. NEB SCH ×4 (07:22→20:10)
--- NOTE | 2018-03-16 08:22 | PN ---
Progress Note, Physician Chief Complaint: hypokalemia AMS History of Present Illness: NAD in bed alert and oriented Seen by ID, nephrology and neurology for AMS hypokalemia resolved Seen by Psychiatry for depression, started on remeron 15 mg po HS On IV abx for Pneumonia repeat CXR worse CT chest ordered-pending Spoke to sister Yenni yesterday - Current Medication List Current Medications: Active Medications Acetaminophen (Tylenol -) 650 mg PO Q6H PRN PRN Reason: PAIN OR FEVER Albuterol Sulfate (Ventolin 0.083% Nebulizer Soln -) 1 amp NEB Q4H PRN PRN Reason: SHORT OF BREATH/WHEEZING Albuterol/Ipratropium (Duoneb -) 1 amp NEB RQID [facility] Last Admin: 03/16/18 07:22 Dose: 1 amp Cyanocobalamin (Vitamin B12 Injection -) 1,000 mcg IM DAILY [facility] Last Admin: 03/15/18 09:58 Dose: 1,000 mcg Heparin Sodium (Porcine) (Heparin -) 5,000 unit SQ BID [facility] Last Admin: 03/15/18 21:35 Dose: 5,000 unit Dextrose/Sodium Chloride (Dextrose 5%-Normal Saline+40 Meq Kcl -) 40 meq in 1, 000 mls @ 75 mls/hr IV ASDIR [facility] Last Admin: 03/15/18 21:33 Dose: 75 mls/hr Ceftriaxone Sodium 2 gm/ (Dextrose) 100 mls @ 100 mls/hr IVPB DAILY [facility]; Protocol Last Admin: 03/15/18 09:54 Dose: 100 mls/hr Azithromycin 500 mg/ Dextrose 250 mls @ 250 mls/hr IVPB DAILY [facility] Last Admin: 03/15/18 11:32 Dose: 250 mls/hr Mirtazapine (Remeron -) 15 mg PO HS [facility] Last Admin: 03/15/18 21:35 Dose: 15 mg - Objective Vital Signs: Vital Signs Temperature 98.2 F 03/16/18 06:00 Pulse Rate 88 03/16/18 06:00 Respiratory Rate 18 03/16/18 06:00 Blood Pressure 154/88 03/16/18 06:00 O2 Sat by Pulse Oximetry (%) 96 03/15/18 21:00 Constitutional: Yes: Well Nourished, No Distress, Calm Cardiovascular: Yes: Regular Rate and Rhythm Respiratory: Yes: Regular Gastrointestinal: Yes: Normal Bowel Sounds, Soft Musculoskeletal: Yes: Muscle Weakness Edema: No Peripheral Pulses WNL: Yes Neurological: Yes: Alert, Oriented Psychiatric: Yes: Alert, Oriented Labs: CBC, BMP 03/15/18 06:30 03/15/18 06:30 INR, PTT INR 1.14 (0.83-1.09) H 03/12/18 15:15 Problem List - Problems (1) Acute renal failure Assessment/Plan: -nephrology -Hold IVF due to pulmonary congestion on CXR -CT chest -Cr improving -Monitor Cr Code(s): N17.9 - ACUTE KIDNEY FAILURE, UNSPECIFIED Qualifiers: Acute renal failure type: unspecified Qualified Code(s): N17.9 - Acute kidney failure, unspecified (2) Altered mental status Assessment/Plan: 2/2 metabolic encephalopathy -Head CT negative -Seen by neurology Code(s): R41.82 - ALTERED MENTAL STATUS, UNSPECIFIED (3) Hypokalemia Assessment/Plan: -resolved -nephrology on board -monitor trend Code(s): E87.6 - HYPOKALEMIA (4) PNA (pneumonia) Assessment/Plan: -ID on board -IV abx -Pulmonary consult -Bronchodilators -Repeat CXR worse -CT Chest ordered-pending Code(s): J18.9 - PNEUMONIA, UNSPECIFIED ORGANISM (5) Toxic metabolic encephalopathy Assessment/Plan: -mental status improved -UC/BC: Microbiology 03/12/18 15:30 Blood - Peripheral Venous Blood Culture - Preliminary NO GROWTH OBTAINED AFTER 48 HOURS, INCUBATION TO CONTINUE FOR 3 DAYS. 03/12/18 16:04 Blood - Peripheral Venous Blood Culture - Preliminary NO GROWTH OBTAINED AFTER 48 HOURS, INCUBATION TO CONTINUE FOR 3 DAYS. 03/12/18 15:10 Urine - Urine - Catheterized Urine Culture - Final 03/13/18 12:40 Urine For Antigen Detection Legionella Antigen - Final 03/13/18 12:40 Urine For Antigen Detection Streptococcus pneumoniae Antigen (M - Final -afebrile -ID consult -IV abx Code(s): G92 - TOXIC ENCEPHALOPATHY (6) Depression Assessment/Plan: -seen by Psychiatry -Remeron 15 mg po HS -Follow up at [facility] outpatient Code(s): F32.9 - MAJOR DEPRESSIVE DISORDER, SINGLE EPISODE, UNSPECIFIED Assessment/Plan see problem list SNF candidate
[2018-03-16 08:38] LABS: BASO % 0.9 % (0-2.0); EOS % 0.5 % (0-4.5); HEMATOCRIT 44.1 % (35.4-49); HEMOGLOBIN 15.2 GM/dL (11.7-16.9); LYMPH % 17.8 % (8-40); MCH 31.5 pg (25.7-33.7); MCHC 34.4 g/dl (32.0-35.9); MEAN CELL VOLUME 91.6 fl (80-96); MEAN PLT VOLUME 8.7 fl (7.5-11.1); MONO % 6.8 % (3.8-10.2); PLATELET COUNT 131 K/MM3 (134-434); RBC 4.81 M/mm3 (4.00-5.60); RDW 13.8 % (11.9-15.9); WHITE BLOOD COUNT 8.2 K/mm3 (4.0-10.0)
[2018-03-16 09:04] LABS: ANION GAP 9 MMOL/L (8-16); BLOOD UREA NITROGEN 17 mg/dL (7-18); CALCIUM 8.2 mg/dL (8.5-10.1); CHLORIDE 99 mmol/L (98-107); CO2 34 mmol/L (21-32); GLUCOSE,RANDOM 98 mg/dL (74-106); MAGNESIUM 1.6 mg/dL (1.8-2.4); POTASSIUM 3.3 mmol/L (3.5-5.1); SODIUM 142 mmol/L (136-145)
[2018-03-16] MEDS ORDERED: DEXTROSE 5%-WATER 100 ML IVPB ONE (09:49)
[2018-03-16] MEDS: CEFTRIAXONE 2 GM in DEXTROSE 5%-WATER 100 ML IVPB SCH (09:56)
[2018-03-16] MEDS: HEPARIN NA (PORCINE) 5,000 UNITS/ML 1ML VIAL SQ SCH ×2 (09:58→21:55)
[2018-03-16] MEDS: CYANOCOBALAMIN (VITAMIN B-12) 1000 MCG/1 ML VIAL IM SCH (09:59)
[2018-03-16] MEDS: AZITHROMYCIN IVPB 500 MG in DEXTROSE 5%-WATER - 250 ML IVPB SCH (11:25)
--- NOTE | 2018-03-16 12:16 | PN ---
Progress Note (short form) - Note Progress Note: * The patient at first appeared to be in a depressed mood. His affect and his verbalizations suggested that he is experiencing some degree of hopelessness. * * In the course of psychotherapuetic intervetion, he became more hopeful and even was smiling at times. He proudly shared a photo that was on his cell phone of his close friends from many years ago. * * He was interested in following up with psychotherapy after discharge from the hospital and the SNF. Problem List - Problems (1) Depression, major, recurrent Code(s): F33.9 - MAJOR DEPRESSIVE DISORDER, RECURRENT, UNSPECIFIED Qualifiers: Active/Remission status: currently active Major depression episode severity : severe Psychotic features: without psychotic features Qualified Code(s): F33.2 - Major depressive disorder, recurrent severe without psychotic features (2) Anxiety about health Code(s): F41.8 - OTHER SPECIFIED ANXIETY DISORDERS (3) Smoking addiction Code(s): F17.200 - NICOTINE DEPENDENCE, UNSPECIFIED, UNCOMPLICATED
--- NOTE | 2018-03-16 12:27 | PN ---
Progress Note (short form) - Note Progress Note: PULMONARY Still some shortness of breath, cough and wheezing. No chest pain. Vital Signs Period Temp Pulse Resp BP Sys/Restrepo Pulse Ox Last 24 Hr 98.2 F-98.6 F 88-95 18-20 143-168/74-92 93-96 Intake & Output 03/13/18 03/14/18 03/15/18 03/16/18 23:59 23:59 23:59 23:59 Intake Total 1575 2400 2550 1225 Output Total 1400 7351 958 9458 Balance 175 1400 1750 -1275 Weight 98.883 kg 98.883 kg Gen: mildly tachypneic at rest Heart: RRR Lung: scattered rhonchi, wheezes Abd: soft, nontender Ext: no edema CBC, BMP 03/16/18 08:00 03/16/18 08:00 Active Medications Acetaminophen (Tylenol -) 650 mg PO Q6H PRN PRN Reason: PAIN OR FEVER Albuterol Sulfate (Ventolin 0.083% Nebulizer Soln -) 1 amp NEB Q4H PRN PRN Reason: SHORT OF BREATH/WHEEZING Albuterol/Ipratropium (Duoneb -) 1 amp NEB RQID [facility] Last Admin: 03/16/18 11:20 Dose: 1 amp Cyanocobalamin (Vitamin B12 Injection -) 1,000 mcg IM DAILY [facility] Last Admin: 03/16/18 09:59 Dose: 1,000 mcg Heparin Sodium (Porcine) (Heparin -) 5,000 unit SQ BID [facility] Last Admin: 03/16/18 09:58 Dose: 5,000 unit Ceftriaxone Sodium 2 gm/ (Dextrose) 100 mls @ 100 mls/hr IVPB DAILY [facility]; Protocol Last Admin: 03/16/18 09:56 Dose: 100 mls/hr Azithromycin 500 mg/ Dextrose 250 mls @ 250 mls/hr IVPB DAILY [facility] Last Admin: 03/16/18 11:25 Dose: 250 mls/hr Mirtazapine (Remeron -) 15 mg PO HS [facility] Last Admin: 03/15/18 21:35 Dose: 15 mg A/P Acute COPD Exacerbation Acute Kidney Injury Hypokalemia HTN Hyperlipidemia Smoker - will resume medrol daily - inhaled bronchodilators standing and PRN - O2 to keep SpO2>90% - replete lytes - smoking cessation - outpt PFTs - DVT prophylaxis Problem List - Problems (1) Altered mental status Code(s): R41.82 - ALTERED MENTAL STATUS, UNSPECIFIED (2) Hypokalemia Code(s): E87.6 - HYPOKALEMIA (3) Acute renal failure Code(s): N17.9 - ACUTE KIDNEY FAILURE, UNSPECIFIED Qualifiers: Acute renal failure type: unspecified Qualified Code(s): N17.9 - Acute kidney failure, unspecified (4) COPD with acute exacerbation Code(s): J44.1 - CHRONIC OBSTRUCTIVE PULMONARY DISEASE W (ACUTE) EXACERBATION (5) Smoker Code(s): F17.200 - NICOTINE DEPENDENCE, UNSPECIFIED, UNCOMPLICATED
[2018-03-16] MEDS: methylPREDNISolone NA SUCC 40 MG/1 ML VIAL IVPUSH SCH (13:00)
--- NOTE | 2018-03-16 14:07 | PN ---
Progress Note, Physician History of Present Illness: Pt seen and examined at bedside. He is awake and alert. He is tolerating diet. - Current Medication List Current Medications: Active Medications Acetaminophen (Tylenol -) 650 mg PO Q6H PRN PRN Reason: PAIN OR FEVER Albuterol Sulfate (Ventolin 0.083% Nebulizer Soln -) 1 amp NEB Q4H PRN PRN Reason: SHORT OF BREATH/WHEEZING Albuterol/Ipratropium (Duoneb -) 1 amp NEB RQID [facility] Last Admin: 03/16/18 11:20 Dose: 1 amp Cyanocobalamin (Vitamin B12 Injection -) 1,000 mcg IM DAILY [facility] Last Admin: 03/16/18 09:59 Dose: 1,000 mcg Heparin Sodium (Porcine) (Heparin -) 5,000 unit SQ BID [facility] Last Admin: 03/16/18 09:58 Dose: 5,000 unit Ceftriaxone Sodium 2 gm/ (Dextrose) 100 mls @ 100 mls/hr IVPB DAILY [facility]; Protocol Last Admin: 03/16/18 09:56 Dose: 100 mls/hr Azithromycin 500 mg/ Dextrose 250 mls @ 250 mls/hr IVPB DAILY [facility] Last Admin: 03/16/18 11:25 Dose: 250 mls/hr Methylprednisolone Sodium Succinate (Solu-Medrol -) 40 mg IVPUSH DAILY [facility] Last Admin: 03/16/18 13:00 Dose: 40 mg Mirtazapine (Remeron -) 15 mg PO HS [facility] Last Admin: 03/15/18 21:35 Dose: 15 mg Potassium Chloride (K-Dur -) 40 meq PO ONCE ONE Stop: 03/16/18 14:04 - Objective Vital Signs: Vital Signs Temperature 98.3 F 03/16/18 10:00 Pulse Rate 89 03/16/18 10:00 Respiratory Rate 18 03/16/18 10:00 Blood Pressure 154/88 03/16/18 10:00 O2 Sat by Pulse Oximetry (%) 95 03/16/18 09:00 Constitutional: Yes: Calm Eyes: Yes: Conjunctiva Clear HENT: Yes: Atraumatic Neck: Yes: Supple Cardiovascular: Yes: S1, S2 Respiratory: Yes: CTA Bilaterally Gastrointestinal: Yes: Soft Genitourinary: Yes: WNL Musculoskeletal: Yes: WNL Edema: No Neurological: Yes: Confusion Labs: CBC, BMP 03/16/18 08:00 03/16/18 08:00 INR, PTT INR 1.14 (0.83-1.09) H 03/12/18 15:15 Problem List - Problems (1) Acute renal failure Code(s): N17.9 - ACUTE KIDNEY FAILURE, UNSPECIFIED Qualifiers: Acute renal failure type: unspecified Qualified Code(s): N17.9 - Acute kidney failure, unspecified (2) Altered mental status Code(s): R41.82 - ALTERED MENTAL STATUS, UNSPECIFIED (3) Hypokalemia Code(s): E87.6 - HYPOKALEMIA (4) Sepsis Code(s): A41.9 - SEPSIS, UNSPECIFIED ORGANISM (5) Toxic metabolic encephalopathy Code(s): G92 - TOXIC ENCEPHALOPATHY Assessment/Plan Current Medications Generic Name Dose Route Start Last Admin Trade Name Freq PRN Reason Stop Dose Admin Acetaminophen 650 mg 03/12/18 18:09 Tylenol - PO Q6H PRN PAIN OR FEVER Albuterol Sulfate 1 amp 03/13/18 14:23 Ventolin 0.083% Nebulizer Soln - NEB Q4H PRN SHORT OF BREATH/WHEEZING Albuterol/Ipratropium 1 amp 03/13/18 16:00 03/16/18 11:20 Duoneb - NEB 1 amp RQID [facility] Administration Cyanocobalamin 1,000 mcg 03/13/18 12:45 03/16/18 09:59 Vitamin B12 Injection - IM 1,000 mcg DAILY [facility] Administration Heparin Sodium (Porcine) 5,000 unit 03/12/18 22:00 03/16/18 09:58 Heparin - SQ 5,000 unit BID [facility] Administration Ceftriaxone Sodium 2 gm/ 100 mls @ 100 mls/hr 03/13/18 19:30 03/16/18 09:56 Dextrose IVPB 100 mls/hr DAILY [facility] Administration Protocol Azithromycin 500 mg/ Dextrose 250 mls @ 250 mls/hr 03/13/18 19:30 03/16/18 11 :25 IVPB 250 mls/hr DAILY [facility] Administration Magnesium Sulfate 2 gm 03/16/18 14:04 Magnesium Sulfate IVPB 03/16/18 14:05 ONCE ONE Methylprednisolone Sodium Succinate 40 mg 03/16/18 12:30 03/16/18 13:00 Solu-Medrol - IVPUSH 40 mg DAILY [facility] Administration Mirtazapine 15 mg 03/13/18 22:00 03/15/18 21:35 Remeron - PO 15 mg HS [facility] Administration Potassium Chloride 40 meq 03/16/18 14:03 K-Dur - PO 03/16/18 14:04 ONCE ONE Laboratory Tests 03/16/18 08:00 Potassium 3.3 L Magnesium 1.6 L D Impression 1. HINA 2. hypokalemia 3. diarrhea 4. altered mental status Plan - renal function stabilizing - can stop fluids - replace potassium - replace mag, will give IV as he had diarrhea - repeat labs in am - HINA likely from prolonged pre-renal disease Dr Cole
[2018-03-16] MEDS ORDERED: MAGNESIUM 2GM/50ML STERILE WATER IVPB IVPB ONE (14:45)
[2018-03-16] MEDS ORDERED: POTASSIUM CHLORIDE TABS 20 MEQ TABLET.ER (FP) PO ONE (15:00)
[2018-03-16] MEDS: MIRTAZAPINE 15 MG TABLET (FP) PO SCH (21:56)
[2018-03-17 07:20] LABS: ANION GAP 9 MMOL/L (8-16); BLOOD UREA NITROGEN 22 mg/dL (7-18); CALCIUM 8.1 mg/dL (8.5-10.1); CHLORIDE 97 mmol/L (98-107); CO2 35 mmol/L (21-32); CREATININE 1.1 mg/dL (0.7-1.3); GLUCOSE,RANDOM 92 mg/dL (74-106); MAGNESIUM 1.9 mg/dL (1.8-2.4); POTASSIUM 3.7 mmol/L (3.5-5.1); SODIUM 141 mmol/L (136-145)
[2018-03-17] MEDS: ALBUTEROL SO4 2.5/IPRATROPIUM 0.5 INH SOL 3 ML VIAL.NEB. NEB SCH ×4 (07:32→20:00)
[2018-03-17] MEDS ORDERED: DEXTROSE 5%-WATER 100 ML IVPB ONE (09:00)
--- NOTE | 2018-03-17 09:02 | PN ---
Progress Note, Physician Chief Complaint: hypokalemia AMS History of Present Illness: NAD in bed alert and oriented Seen by ID, nephrology and neurology for AMS hypokalemia resolved Seen by Psychiatry for depression, started on remeron 15 mg po HS On IV abx for Pneumonia started on IV medrol repeat CXR worse CT chest done results pending - Current Medication List Current Medications: Active Medications Acetaminophen (Tylenol -) 650 mg PO Q6H PRN PRN Reason: PAIN OR FEVER Albuterol Sulfate (Ventolin 0.083% Nebulizer Soln -) 1 amp NEB Q4H PRN PRN Reason: SHORT OF BREATH/WHEEZING Albuterol/Ipratropium (Duoneb -) 1 amp NEB RQID [facility] Last Admin: 03/17/18 07:32 Dose: 1 amp Cyanocobalamin (Vitamin B12 Injection -) 1,000 mcg IM DAILY [facility] Last Admin: 03/16/18 09:59 Dose: 1,000 mcg Heparin Sodium (Porcine) (Heparin -) 5,000 unit SQ BID [facility] Last Admin: 03/16/18 21:55 Dose: 5,000 unit Ceftriaxone Sodium 2 gm/ (Dextrose) 100 mls @ 100 mls/hr IVPB DAILY [facility]; Protocol Last Admin: 03/16/18 09:56 Dose: 100 mls/hr Azithromycin 500 mg/ Dextrose 250 mls @ 250 mls/hr IVPB DAILY [facility] Last Admin: 03/16/18 11:25 Dose: 250 mls/hr Methylprednisolone Sodium Succinate (Solu-Medrol -) 40 mg IVPUSH DAILY [facility] Last Admin: 03/16/18 13:00 Dose: 40 mg Mirtazapine (Remeron -) 15 mg PO HS [facility] Last Admin: 03/16/18 21:56 Dose: 15 mg Potassium Chloride (K-Dur -) 40 meq PO DAILY [facility] - Objective Vital Signs: Vital Signs Temperature 97.5 F L 03/17/18 05:32 Pulse Rate 93 H 03/17/18 05:32 Respiratory Rate 20 03/17/18 05:32 Blood Pressure 169/94 03/17/18 05:32 O2 Sat by Pulse Oximetry (%) 96 03/16/18 21:00 Constitutional: Yes: Well Nourished, No Distress, Calm Cardiovascular: Yes: Regular Rate and Rhythm Respiratory: Yes: Regular Gastrointestinal: Yes: Normal Bowel Sounds, Soft Musculoskeletal: Yes: WNL Extremities: Yes: WNL Edema: No Peripheral Pulses WNL: Yes Neurological: Yes: Alert, Oriented Psychiatric: Yes: Alert, Oriented Labs: CBC, BMP 03/16/18 08:00 03/17/18 06:30 INR, PTT INR 1.14 (0.83-1.09) H 03/12/18 15:15 Problem List - Problems (1) Acute renal failure Assessment/Plan: -nephrology -CT chest results pending -Cr improving -Monitor Cr Code(s): N17.9 - ACUTE KIDNEY FAILURE, UNSPECIFIED Qualifiers: Acute renal failure type: unspecified Qualified Code(s): N17.9 - Acute kidney failure, unspecified (2) Altered mental status Assessment/Plan: 2/2 metabolic encephalopathy -Head CT negative -Seen by neurology Code(s): R41.82 - ALTERED MENTAL STATUS, UNSPECIFIED (3) Hypokalemia Assessment/Plan: -resolved -nephrology on board -monitor trend Code(s): E87.6 - HYPOKALEMIA (4) PNA (pneumonia) Assessment/Plan: -ID on board -IV abx -Pulmonary consult -Bronchodilators -Repeat CXR worse -CT Chest done-results pending -IV medrol ordered Code(s): J18.9 - PNEUMONIA, UNSPECIFIED ORGANISM (5) Toxic metabolic encephalopathy Assessment/Plan: -mental status improved -UC/BC: Microbiology 03/12/18 15:30 Blood - Peripheral Venous Blood Culture - Preliminary NO GROWTH OBTAINED AFTER 48 HOURS, INCUBATION TO CONTINUE FOR 3 DAYS. 03/12/18 16:04 Blood - Peripheral Venous Blood Culture - Preliminary NO GROWTH OBTAINED AFTER 48 HOURS, INCUBATION TO CONTINUE FOR 3 DAYS. 03/12/18 15:10 Urine - Urine - Catheterized Urine Culture - Final 03/13/18 12:40 Urine For Antigen Detection Legionella Antigen - Final 03/13/18 12:40 Urine For Antigen Detection Streptococcus pneumoniae Antigen (M - Final -afebrile -ID consult -IV abx Code(s): G92 - TOXIC ENCEPHALOPATHY (6) Depression Assessment/Plan: -seen by Psychiatry -Remeron 15 mg po HS -Follow up at [facility] outpatient Code(s): F32.9 - MAJOR DEPRESSIVE DISORDER, SINGLE EPISODE, UNSPECIFIED Assessment/Plan see problem list SNF candidate
[2018-03-17] MEDS: methylPREDNISolone NA SUCC 40 MG/1 ML VIAL IVPUSH SCH (09:04)
[2018-03-17] MEDS: POTASSIUM CHLORIDE TABS 10 MEQ TABLET.ER (FP) PO SCH (09:04)
[2018-03-17] MEDS: HEPARIN NA (PORCINE) 5,000 UNITS/ML 1ML VIAL SQ SCH ×2 (09:04→21:37)
[2018-03-17] MEDS: CYANOCOBALAMIN (VITAMIN B-12) 1000 MCG/1 ML VIAL IM SCH (09:04)
[2018-03-17] MEDS: CEFTRIAXONE 2 GM in DEXTROSE 5%-WATER 100 ML IVPB SCH (09:05)
[2018-03-17] MEDS ORDERED: PT OWN MED DRAWER 7, Y5N ONE (09:53)
[2018-03-17] MEDS: AZITHROMYCIN IVPB 500 MG in DEXTROSE 5%-WATER - 250 ML IVPB SCH (10:02)
--- NOTE | 2018-03-17 13:39 | PN ---
Progress Note (short form) - Note Progress Note: PULMONARY Breathing better today, less cough and wheezing. No chest pain. Vital Signs Period Temp Pulse Resp BP Sys/Restrepo Pulse Ox Last 24 Hr 97.5 F-98.3 F 90-111 19-20 152-169/61-94 96-96 Gen: less tachypneic at rest Heart: RRR Lung: decreased breath sounds at the bases Abd: soft, nontender Ext: no edema CBC, BMP 03/16/18 08:00 03/17/18 06:30 Active Medications Acetaminophen (Tylenol -) 650 mg PO Q6H PRN PRN Reason: PAIN OR FEVER Albuterol Sulfate (Ventolin 0.083% Nebulizer Soln -) 1 amp NEB Q4H PRN PRN Reason: SHORT OF BREATH/WHEEZING Albuterol/Ipratropium (Duoneb -) 1 amp NEB RQID [facility] Last Admin: 03/17/18 11:45 Dose: 1 amp Cyanocobalamin (Vitamin B12 Injection -) 1,000 mcg IM DAILY [facility] Last Admin: 03/17/18 09:04 Dose: 1,000 mcg Heparin Sodium (Porcine) (Heparin -) 5,000 unit SQ BID [facility] Last Admin: 03/17/18 09:04 Dose: 5,000 unit Ceftriaxone Sodium 2 gm/ (Dextrose) 100 mls @ 100 mls/hr IVPB DAILY [facility]; Protocol Last Admin: 03/17/18 09:05 Dose: 100 mls/hr Azithromycin 500 mg/ Dextrose 250 mls @ 250 mls/hr IVPB DAILY [facility] Last Admin: 03/17/18 10:02 Dose: 250 mls/hr Methylprednisolone Sodium Succinate (Solu-Medrol -) 40 mg IVPUSH DAILY [facility] Last Admin: 03/17/18 09:04 Dose: 40 mg Mirtazapine (Remeron -) 15 mg PO HS [facility] Last Admin: 03/16/18 21:56 Dose: 15 mg Potassium Chloride (K-Dur -) 40 meq PO DAILY [facility] Last Admin: 03/17/18 09:04 Dose: 40 meq A/P Acute COPD Exacerbation Acute Kidney Injury Hypokalemia HTN Hyperlipidemia Smoker - continue daily medrol - inhaled bronchodilators standing and PRN - O2 to keep SpO2>90% - replete lytes - smoking cessation - will order nicotine patch - outpt PFTs - DVT prophylaxis Problem List - Problems (1) Altered mental status Code(s): R41.82 - ALTERED MENTAL STATUS, UNSPECIFIED (2) Hypokalemia Code(s): E87.6 - HYPOKALEMIA (3) Acute renal failure Code(s): N17.9 - ACUTE KIDNEY FAILURE, UNSPECIFIED Qualifiers: Acute renal failure type: unspecified Qualified Code(s): N17.9 - Acute kidney failure, unspecified (4) COPD with acute exacerbation Code(s): J44.1 - CHRONIC OBSTRUCTIVE PULMONARY DISEASE W (ACUTE) EXACERBATION (5) Smoker Code(s): F17.200 - NICOTINE DEPENDENCE, UNSPECIFIED, UNCOMPLICATED
--- NOTE | 2018-03-17 14:40 | PN ---
Progress Note, Physician History of Present Illness: Pt seen and examined at bedside. He is awake and appears comfortable. He is tolerating diet. - Current Medication List Current Medications: Active Medications Acetaminophen (Tylenol -) 650 mg PO Q6H PRN PRN Reason: PAIN OR FEVER Albuterol Sulfate (Ventolin 0.083% Nebulizer Soln -) 1 amp NEB Q4H PRN PRN Reason: SHORT OF BREATH/WHEEZING Albuterol/Ipratropium (Duoneb -) 1 amp NEB RQID [facility] Last Admin: 03/17/18 11:45 Dose: 1 amp Cyanocobalamin (Vitamin B12 Injection -) 1,000 mcg IM DAILY [facility] Last Admin: 03/17/18 09:04 Dose: 1,000 mcg Heparin Sodium (Porcine) (Heparin -) 5,000 unit SQ BID [facility] Last Admin: 03/17/18 09:04 Dose: 5,000 unit Ceftriaxone Sodium 2 gm/ (Dextrose) 100 mls @ 100 mls/hr IVPB DAILY [facility]; Protocol Last Admin: 03/17/18 09:05 Dose: 100 mls/hr Azithromycin 500 mg/ Dextrose 250 mls @ 250 mls/hr IVPB DAILY [facility] Last Admin: 03/17/18 10:02 Dose: 250 mls/hr Methylprednisolone Sodium Succinate (Solu-Medrol -) 40 mg IVPUSH DAILY [facility] Last Admin: 03/17/18 09:04 Dose: 40 mg Mirtazapine (Remeron -) 15 mg PO HS [facility] Last Admin: 03/16/18 21:56 Dose: 15 mg Nicotine (Nicoderm Patch -) 14 mg TD DAILY [facility] Potassium Chloride (K-Dur -) 40 meq PO DAILY [facility] Last Admin: 03/17/18 09:04 Dose: 40 meq - Objective Vital Signs: Vital Signs Temperature 98.3 F 03/17/18 14:05 Pulse Rate 89 03/17/18 14:05 Respiratory Rate 20 03/17/18 09:00 Blood Pressure 151/90 03/17/18 14:05 O2 Sat by Pulse Oximetry (%) 96 03/17/18 09:00 Constitutional: Yes: Calm Eyes: Yes: Conjunctiva Clear HENT: Yes: Atraumatic Cardiovascular: Yes: S1, S2 Respiratory: Yes: CTA Bilaterally Gastrointestinal: Yes: Soft Genitourinary: Yes: WNL Musculoskeletal: Yes: WNL Edema: No Neurological: Yes: Confusion Labs: CBC, BMP 03/16/18 08:00 03/17/18 06:30 INR, PTT INR 1.14 (0.83-1.09) H 03/12/18 15:15 Problem List - Problems (1) Acute renal failure Code(s): N17.9 - ACUTE KIDNEY FAILURE, UNSPECIFIED Qualifiers: Acute renal failure type: unspecified Qualified Code(s): N17.9 - Acute kidney failure, unspecified (2) Altered mental status Code(s): R41.82 - ALTERED MENTAL STATUS, UNSPECIFIED (3) Hypokalemia Code(s): E87.6 - HYPOKALEMIA (4) Sepsis Code(s): A41.9 - SEPSIS, UNSPECIFIED ORGANISM (5) Toxic metabolic encephalopathy Code(s): G92 - TOXIC ENCEPHALOPATHY Assessment/Plan Current Medications Generic Name Dose Route Start Last Admin Trade Name Freq PRN Reason Stop Dose Admin Acetaminophen 650 mg 03/12/18 18:09 Tylenol - PO Q6H PRN PAIN OR FEVER Albuterol Sulfate 1 amp 03/13/18 14:23 Ventolin 0.083% Nebulizer Soln - NEB Q4H PRN SHORT OF BREATH/WHEEZING Albuterol/Ipratropium 1 amp 03/13/18 16:00 03/17/18 11:45 Duoneb - NEB 1 amp RQID [facility] Administration Cyanocobalamin 1,000 mcg 03/13/18 12:45 03/17/18 09:04 Vitamin B12 Injection - IM 1,000 mcg DAILY [facility] Administration Heparin Sodium (Porcine) 5,000 unit 03/12/18 22:00 03/17/18 09:04 Heparin - SQ 5,000 unit BID [facility] Administration Ceftriaxone Sodium 2 gm/ 100 mls @ 100 mls/hr 03/13/18 19:30 03/17/18 09:05 Dextrose IVPB 100 mls/hr DAILY [facility] Administration Protocol Azithromycin 500 mg/ Dextrose 250 mls @ 250 mls/hr 03/13/18 19:30 03/17/18 10 :02 IVPB 250 mls/hr DAILY [facility] Administration Methylprednisolone Sodium Succinate 40 mg 03/16/18 12:30 03/17/18 09:04 Solu-Medrol - IVPUSH 40 mg DAILY [facility] Administration Mirtazapine 15 mg 03/13/18 22:00 03/16/18 21:56 Remeron - PO 15 mg HS [facility] Administration Nicotine 14 mg 03/17/18 13:45 Nicoderm Patch - TD DAILY [facility] Potassium Chloride 40 meq 03/17/18 10:00 03/17/18 09:04 K-Dur - PO 40 meq DAILY [facility] Administration Impression 1. HINA 2. hypokalemia 3. diarrhea 4. altered mental status Plan - potassium improved - renal function stable - encourage PO intake - pt stable off of fluids - will follow PRN - HINA likely from prolonged pre-renal disease Dr Cole
[2018-03-17] MEDS: NICOTINE 14 MG/24 HOURS TOPICAL PATCH TD SCH (15:01)
[2018-03-17] MEDS: MIRTAZAPINE 15 MG TABLET (FP) PO SCH (21:37)
[2018-03-18] MEDS: ALBUTEROL SO4 2.5/IPRATROPIUM 0.5 INH SOL 3 ML VIAL.NEB. NEB SCH ×4 (07:35→20:31)
[2018-03-18] MEDS ORDERED: DEXTROSE 5%-WATER 100 ML IVPB ONE (09:22)
[2018-03-18] MEDS: CYANOCOBALAMIN (VITAMIN B-12) 1000 MCG/1 ML VIAL IM SCH (09:25)
[2018-03-18] MEDS: methylPREDNISolone NA SUCC 40 MG/1 ML VIAL IVPUSH SCH (09:25)
[2018-03-18] MEDS: CEFTRIAXONE 2 GM in DEXTROSE 5%-WATER 100 ML IVPB SCH (09:25)
[2018-03-18] MEDS: NICOTINE 14 MG/24 HOURS TOPICAL PATCH TD SCH (09:25)
[2018-03-18] MEDS: HEPARIN NA (PORCINE) 5,000 UNITS/ML 1ML VIAL SQ SCH ×2 (09:25→21:56)
[2018-03-18] MEDS: POTASSIUM CHLORIDE TABS 10 MEQ TABLET.ER (FP) PO SCH (09:25)
--- NOTE | 2018-03-18 09:43 | PN ---
Progress Note (short form) - Note Progress Note: PULMONARY ALERT,NO DISTRESS,+ OCC COUGH VSS Constitutional: Yes: Well Nourished, Calm Eyes: Yes: WNL HENT: Yes: WNL Neck: Yes: WNL Cardiovascular: Yes: Regular Rate and Rhythm, S1, S2 Respiratory: Yes: Rhonchi (SCATTERED RHONCHI) Gastrointestinal: Yes: Normal Bowel Sounds, Soft Extremities: Yes: WNL Edema: No LABS/MEDS/NOTES/IMAGES NOTED Acute COPD Exacerbation CHF Acute Kidney Injury Hypokalemia HTN Hyperlipidemia Smoker - IV medrol discontinued - inhaled bronchodilators standing and PRN - O2 to keep SpO2>90% - replete lytes as needed - smoking cessation - outpt PFTs - DVT prophylaxis Jake YOUNG MD
[2018-03-18] MEDS: predniSONE 10 MG TABLET (UD) PO SCH (09:48)
[2018-03-18] MEDS ORDERED: PT OWN MED DRAWER 7, Y5N ONE (10:18)
[2018-03-18] MEDS: AZITHROMYCIN IVPB 500 MG in DEXTROSE 5%-WATER - 250 ML IVPB SCH (10:18)
--- NOTE | 2018-03-18 12:40 | PN ---
Progress Note, Physician History of Present Illness: Pt seen and examined at bedside. He is awake and alert. He does get confused at times. - Current Medication List Current Medications: Active Medications Acetaminophen (Tylenol -) 650 mg PO Q6H PRN PRN Reason: PAIN OR FEVER Albuterol Sulfate (Ventolin 0.083% Nebulizer Soln -) 1 amp NEB Q4H PRN PRN Reason: SHORT OF BREATH/WHEEZING Albuterol/Ipratropium (Duoneb -) 1 amp NEB RQID [facility] Last Admin: 03/18/18 11:20 Dose: 1 amp Cyanocobalamin (Vitamin B12 Injection -) 1,000 mcg IM DAILY [facility] Last Admin: 03/18/18 09:25 Dose: 1,000 mcg Heparin Sodium (Porcine) (Heparin -) 5,000 unit SQ BID [facility] Last Admin: 03/18/18 09:25 Dose: 5,000 unit Ceftriaxone Sodium 2 gm/ (Dextrose) 100 mls @ 100 mls/hr IVPB DAILY [facility]; Protocol Last Admin: 03/18/18 09:25 Dose: 100 mls/hr Azithromycin 500 mg/ Dextrose 250 mls @ 250 mls/hr IVPB DAILY [facility] Last Admin: 03/18/18 10:18 Dose: 250 mls/hr Mirtazapine (Remeron -) 15 mg PO HS [facility] Last Admin: 03/17/18 21:37 Dose: 15 mg Nicotine (Nicoderm Patch -) 14 mg TD DAILY [facility] Last Admin: 03/18/18 09:25 Dose: 14 mg Potassium Chloride (K-Dur -) 40 meq PO DAILY [facility] Last Admin: 03/18/18 09:25 Dose: 40 meq Prednisone (Deltasone -) 30 mg PO DAILY [facility] Last Admin: 03/18/18 09:48 Dose: Not Given - Objective Vital Signs: Vital Signs Temperature 98.4 F 03/18/18 06:00 Pulse Rate 96 H 03/18/18 06:00 Respiratory Rate 20 03/18/18 09:00 Blood Pressure 157/96 03/18/18 06:00 O2 Sat by Pulse Oximetry (%) 98 03/18/18 09:00 Constitutional: Yes: Calm Eyes: Yes: Conjunctiva Clear HENT: Yes: Atraumatic Neck: Yes: Supple Cardiovascular: Yes: S1, S2 Respiratory: Yes: CTA Bilaterally Gastrointestinal: Yes: Normal Bowel Sounds, Soft Genitourinary: Yes: WNL Musculoskeletal: Yes: WNL Edema: No Neurological: Yes: Confusion Labs: CBC, BMP 03/16/18 08:00 03/17/18 06:30 INR, PTT INR 1.14 (0.83-1.09) H 03/12/18 15:15 Problem List - Problems (1) Acute renal failure Code(s): N17.9 - ACUTE KIDNEY FAILURE, UNSPECIFIED Qualifiers: Acute renal failure type: unspecified Qualified Code(s): N17.9 - Acute kidney failure, unspecified (2) Altered mental status Code(s): R41.82 - ALTERED MENTAL STATUS, UNSPECIFIED (3) Hypokalemia Code(s): E87.6 - HYPOKALEMIA (4) Sepsis Code(s): A41.9 - SEPSIS, UNSPECIFIED ORGANISM (5) Toxic metabolic encephalopathy Code(s): G92 - TOXIC ENCEPHALOPATHY Assessment/Plan Current Medications Generic Name Dose Route Start Last Admin Trade Name Freq PRN Reason Stop Dose Admin Acetaminophen 650 mg 03/12/18 18:09 Tylenol - PO Q6H PRN PAIN OR FEVER Albuterol Sulfate 1 amp 03/13/18 14:23 Ventolin 0.083% Nebulizer Soln - NEB Q4H PRN SHORT OF BREATH/WHEEZING Albuterol/Ipratropium 1 amp 03/13/18 16:00 03/18/18 11:20 Duoneb - NEB 1 amp RQID [facility] Administration Cyanocobalamin 1,000 mcg 03/13/18 12:45 03/18/18 09:25 Vitamin B12 Injection - IM 1,000 mcg DAILY [facility] Administration Heparin Sodium (Porcine) 5,000 unit 03/12/18 22:00 03/18/18 09:25 Heparin - SQ 5,000 unit BID [facility] Administration Ceftriaxone Sodium 2 gm/ 100 mls @ 100 mls/hr 03/13/18 19:30 03/18/18 09:25 Dextrose IVPB 100 mls/hr DAILY [facility] Administration Protocol Azithromycin 500 mg/ Dextrose 250 mls @ 250 mls/hr 03/13/18 19:30 03/18/18 10 :18 IVPB 250 mls/hr DAILY [facility] Administration Mirtazapine 15 mg 03/13/18 22:00 03/17/18 21:37 Remeron - PO 15 mg HS [facility] Administration Nicotine 14 mg 03/17/18 13:45 03/18/18 09:25 Nicoderm Patch - TD 14 mg DAILY [facility] Administration Potassium Chloride 40 meq 03/17/18 10:00 03/18/18 09:25 K-Dur - PO 40 meq DAILY [facility] Administration Prednisone 30 mg 03/18/18 10:00 03/18/18 09:48 Deltasone - PO Not Given DAILY [facility] Impression 1. HINA 2. hypokalemia 3. diarrhea 4. altered mental status Plan - no new labs - monitor renal function - encourage PO intake - pending placement - HINA likely from prolonged pre-renal disease - will follow PRN Dr Cole
[2018-03-18] MEDS: amLODIPine BESYLATE 10 MG TABLET (FP) PO SCH (17:14)
--- NOTE | 2018-03-18 20:48 | PN ---
Progress Note, Physician - Current Medication List Current Medications: Active Medications Acetaminophen (Tylenol -) 650 mg PO Q6H PRN PRN Reason: PAIN OR FEVER Albuterol Sulfate (Ventolin 0.083% Nebulizer Soln -) 1 amp NEB Q4H PRN PRN Reason: SHORT OF BREATH/WHEEZING Albuterol/Ipratropium (Duoneb -) 1 amp NEB RQID [facility] Last Admin: 03/18/18 20:31 Dose: 1 amp Amlodipine Besylate (Norvasc -) 10 mg PO DAILY [facility] Last Admin: 03/18/18 17:14 Dose: 10 mg Cyanocobalamin (Vitamin B12 Injection -) 1,000 mcg IM DAILY [facility] Last Admin: 03/18/18 09:25 Dose: 1,000 mcg Heparin Sodium (Porcine) (Heparin -) 5,000 unit SQ BID [facility] Last Admin: 03/18/18 09:25 Dose: 5,000 unit Ceftriaxone Sodium 2 gm/ (Dextrose) 100 mls @ 100 mls/hr IVPB DAILY [facility]; Protocol Last Admin: 03/18/18 09:25 Dose: 100 mls/hr Azithromycin 500 mg/ Dextrose 250 mls @ 250 mls/hr IVPB DAILY [facility] Last Admin: 03/18/18 10:18 Dose: 250 mls/hr Mirtazapine (Remeron -) 15 mg PO HS [facility] Last Admin: 03/17/18 21:37 Dose: 15 mg Nicotine (Nicoderm Patch -) 14 mg TD DAILY [facility] Last Admin: 03/18/18 09:25 Dose: 14 mg Potassium Chloride (K-Dur -) 40 meq PO DAILY [facility] Last Admin: 03/18/18 09:25 Dose: 40 meq Prednisone (Deltasone -) 30 mg PO DAILY [facility] Last Admin: 03/18/18 09:48 Dose: Not Given - Objective Vital Signs: Vital Signs Temperature 98.1 F 03/18/18 17:03 Pulse Rate 104 H 03/18/18 17:03 Respiratory Rate 21 03/18/18 17:03 Blood Pressure 152/95 03/18/18 17:03 O2 Sat by Pulse Oximetry (%) 98 03/18/18 09:00 Cardiovascular: Yes: S1, S2 Respiratory: Yes: Rhonchi Gastrointestinal: Yes: Normal Bowel Sounds, Soft Labs: CBC, BMP 03/16/18 08:00 03/17/18 06:30 INR, PTT INR 1.14 (0.83-1.09) H 03/12/18 15:15 Assessment/Plan - Problems (1) Acute renal failure Assessment/Plan: -nephrology -CT chest results pending -Cr improving -Monitor Cr Code(s): N17.9 - ACUTE KIDNEY FAILURE, UNSPECIFIED Qualifiers: Acute renal failure type: unspecified Qualified Code(s): N17.9 - Acute kidney failure, unspecified (2) Altered mental status Assessment/Plan: 2/2 metabolic encephalopathy -Head CT negative -Seen by neurology Code(s): R41.82 - ALTERED MENTAL STATUS, UNSPECIFIED (3) Htn Assessment/Plan: -Resume Norvasc 10 mg daily -add Bystolic (4) PNA (pneumonia) Assessment/Plan: -ID on board -IV abx -Pulmonary consult -Bronchodilators -Repeat CXR worse -CT Chest done-results pending -IV medrol ordered Code(s): J18.9 - PNEUMONIA, UNSPECIFIED ORGANISM (5) Toxic metabolic encephalopathy Assessment/Plan: -mental status improved -UC/BC: Microbiology 03/12/18 15:30 Blood - Peripheral Venous Blood Culture - Preliminary NO GROWTH OBTAINED AFTER 48 HOURS, INCUBATION TO CONTINUE FOR 3 DAYS. 03/12/18 16:04 Blood - Peripheral Venous Blood Culture - Preliminary NO GROWTH OBTAINED AFTER 48 HOURS, INCUBATION TO CONTINUE FOR 3 DAYS. 03/12/18 15:10 Urine - Urine - Catheterized Urine Culture - Final 03/13/18 12:40 Urine For Antigen Detection Legionella Antigen - Final 03/13/18 12:40 Urine For Antigen Detection Streptococcus pneumoniae Antigen (M - Final -afebrile -ID consult -IV abx Code(s): G92 - TOXIC ENCEPHALOPATHY (6) Depression Assessment/Plan: -seen by Psychiatry -Remeron 15 mg po HS -Follow up at [facility] outpatient Code(s): F32.9 - MAJOR DEPRESSIVE DISORDER, SINGLE EPISODE, UNSPECIFIED
[2018-03-18] MEDS ORDERED: NEBIVOLOL 5 MG TABLET (FP) PO ONE (21:00)
[2018-03-18] MEDS: MIRTAZAPINE 15 MG TABLET (FP) PO SCH (21:56)
[2018-03-18 23:10] VITALS: TEMP 98.4
[2018-03-19] MEDS ORDERED: PANTOPRAZOLE 20 MG TABLET (FP) PO ONE (02:05)
[2018-03-19] MEDS ORDERED: METOPROLOL TARTRATE 25 MG TABLET (FP) PO ONE (02:15)
[2018-03-19] MEDS: ALBUTEROL SO4 2.5/IPRATROPIUM 0.5 INH SOL 3 ML VIAL.NEB. NEB SCH ×2 (07:21→11:29)
[2018-03-19] MEDS ORDERED: PT OWN MED DRAWER 7, Y5N ONE (09:48)
[2018-03-19] MEDS ORDERED: DEXTROSE 5%-WATER 100 ML IVPB ONE (09:48)
[2018-03-19] MEDS: NICOTINE 14 MG/24 HOURS TOPICAL PATCH TD SCH (09:50)
[2018-03-19] MEDS: CYANOCOBALAMIN (VITAMIN B-12) 1000 MCG/1 ML VIAL IM SCH (09:50)
[2018-03-19] MEDS: HEPARIN NA (PORCINE) 5,000 UNITS/ML 1ML VIAL SQ SCH (09:50)
[2018-03-19] MEDS: POTASSIUM CHLORIDE TABS 10 MEQ TABLET.ER (FP) PO SCH (09:51)
[2018-03-19] MEDS: amLODIPine BESYLATE 10 MG TABLET (FP) PO SCH (09:51)
[2018-03-19] MEDS: predniSONE 10 MG TABLET (UD) PO SCH (09:51)
[2018-03-19] MEDS: CEFTRIAXONE 2 GM in DEXTROSE 5%-WATER 100 ML IVPB SCH (09:52)
[2018-03-19] MEDS ORDERED: NEBIVOLOL 5 MG TABLET (FP) PO SCH (10:00)
[2018-03-19] MEDS ORDERED: NEBIVOLOL 10 MG TABLET (FP) PO SCH (10:00)
[2018-03-19] MEDS ORDERED: HYDROCHLOROTHIAZIDE 12.5 MG CAPSULE (FP) PO SCH (10:00)
[2018-03-19] MEDS: AZITHROMYCIN IVPB 500 MG in DEXTROSE 5%-WATER - 250 ML IVPB SCH (10:14)
[2018-03-19 12:48] VITALS: BP 152/84; PULSE 83
--- NOTE | 2018-03-19 13:15 | DS ---
Physical Examination Vital Signs: Vital Signs Temperature 98.4 F 03/19/18 12:47 Pulse Rate 83 03/19/18 12:47 Respiratory Rate 20 03/19/18 12:47 Blood Pressure 152/84 03/19/18 12:47 O2 Sat by Pulse Oximetry (%) 96 03/19/18 09:00 Constitutional: Yes: Mild Distress Eyes: Yes: WNL HENT: Yes: WNL Neck: Yes: WNL Cardiovascular: Yes: WNL Respiratory: Yes: On Nasal O2, Rhonchi Gastrointestinal: Yes: WNL Renal/: Yes: WNL Musculoskeletal: Yes: Muscle Weakness Extremities: Yes: WNL Edema: No Peripheral Pulses WNL: Yes Integumentary: Yes: WNL Wound/Incision: Yes: Clean/Dry Neurological: Yes: Unsteady Gait ...Motor Strength: LLE, RLE Psychiatric: Yes: Other Labs: CBC, BMP 03/16/18 08:00 03/17/18 06:30 Discharge Summary Reason For Visit: ACUTE RENAL FAILURE,HYPOKALEMIA Current Active Problems Acute renal failure (Acute) Altered mental status (Acute) Anxiety about health (Acute) COPD with acute exacerbation (Acute) Depression (Acute) Depression, major, recurrent (Acute) Hypokalemia (Acute) PNA (pneumonia) (Acute) Sepsis (Acute) Smoker (Acute) Smoking addiction (Acute) Toxic metabolic encephalopathy (Acute) Procedures: Principal: CT SCAN Hospital Course: TREATED WITH UTI/ASPIRATION PNA IV ABX, IV STEROIDS, 02 SUPPORT LEG WEAKNESS LESLIE NEED PT AND SNF Condition: Fair - Instructions Diet, Activity, Other Instructions: TAPE PREDNISONE LOW SALT DIET ORTHOSTATIC BP Referrals: Jennifer Washington MD [Non Staff, Medical] - Disposition: [facility] - Home Medications Comprehensive Discharge Medication List: Ambulatory Orders Exforge 10-320 mg Tablet 1 tablet PO DAILY 03/18/18
== END 2018-03-19 13:38 | DRG 177 ==
LOC: JER 14:18 → JERBED 20:13 → J6S 03-13 02:44
PROVIDERS: ADMIT Family Medicine; ATTEND Family Medicine
DX: J69.0 Pneumonitis due to inhalation of food and vomit (principal); G92 Toxic encephalopathy; N17.9 Acute kidney failure, unspecified; J44.1 Chronic obstructive pulmonary disease with (acute) exacerbation; R41.82 Altered mental status, unspecified; E87.6 Hypokalemia; F41.8 Other specified anxiety disorders; I10 Essential (primary) hypertension; E78.5 Hyperlipidemia, unspecified; F17.210 Nicotine dependence, cigarettes, uncomplicated; I50.9 Heart failure, unspecified; R19.7 Diarrhea, unspecified
CPT/HCPCS: 36415; 70450-TC; 71045-TC-FY; 71250-TC; 76775-TC; 80048; 80053; 80061; 80307; 81003; 81015; 82550; 82553; 82570; 82607; 83036; 83721; 83735; 84100; 84132; 84156; 84300; 84443; 84484; 85025; 85610; 86593; 86850; 86900; 86901; 87040; 87086; 87899; 93005; 93010; 93306-TC; 94640; 94761; 97116-GP; 97161-GP; 99285-25; J1644; J7620

== ENCOUNTER 2018-04-18 14:33 | Observation (INO) | payer OTHER ==
[2018-04-18 15:11] VITALS: BMI 28.5
--- NOTE | 2018-04-18 15:22 | PDOC ---
History of Present Illness - General Chief Complaint: CVA/TIA Stated Complaint: R/O STROKE Time Seen by Provider: 04/18/18 15:17 - History of Present Illness Initial Comments: The patient is a 67M w/ a history of HTN and depression who presents for evaluation of new-onset temporary aphasia today from 1100 to approx 1330. The patient's symptoms as since resolved. He states that he was recently released form [facility] and was making multiple phone calls when he noticed that he was suddenly unable to form sentences. He reports not being able to think of words and that his sentences were made of jumbled words. He feels as though his speech is back to normal at the time of examination. He denies history of stroke or [place]. He denies being on a blood thinner. He denies any change in vision , strength, or sensation today. He denies fevers/chills, UMANA, vision changes, chest pain, SOB, abdominal pain, N/V/C/D. 04/18/18 15:43 Past History - Past Medical History Allergies/Adverse Reactions: Allergies Allergy/AdvReac Type Severity Reaction Status Date / Time No Known Allergies Allergy Verified 03/12/18 15:22 Home Medications: Ambulatory Orders Exforge 10-320 mg Tablet 1 tablet PO DAILY 03/18/18 Acetaminophen [Tylenol .Regular Strength -] 650 mg PO Q6H PRN tablet 03/19/18 Albuterol 0.083% Nebulizer Rosemary [Ventolin 0.083% Nebulizer Soln -] 1 amp NEB Q4H PRN amp 03/19/18 Albuterol 2.5/Ipratropium 0.5 [Duoneb -] 1 amp NEB RQID amp 03/19/18 Amlodipine Besylate [Norvasc -] 10 mg PO DAILY tablet 03/19/18 Heparin - 5,000 unit SQ BID vial 03/19/18 Hydrochlorothiazide [Hctz -] 12.5 mg PO DAILY cap 03/19/18 Mirtazapine [Remeron -] 15 mg PO HS tablet 03/19/18 Nebivolol [Bystolic -] 10 mg PO DAILY tab 03/19/18 Nicotine Patch [Nicoderm Patch -] 14 mg TD DAILY patch 03/19/18 Potassium Chloride [K-Dur -] 40 meq PO DAILY tablet.er 03/19/18 predniSONE [Deltasone -] See Taper PO DAILY tablet 03/19/18 COPD: No HTN: Yes Hypercholesterolemia: Yes - Immunization History Immunization Up to Date: Yes - Suicide/Smoking/Psychosocial Hx Smoking History: Current every day smoker Have you smoked in the past 12 months: Yes Number of Cigarettes Smoked Daily: 30 Information on smoking cessation initiated: No 'Breaking Loose' booklet given: 03/13/18 Hx Alcohol Use: No Drug/Substance Use Hx: No Substance Use Type: Alcohol Hx Substance Use Treatment: Yes (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 No weakness HEAD, EYES, EARS, NOSE AND THROAT: No change in vision. No ear pain or discharge. No sore throat CARDIOVASCULAR: No chest pain or shortness of breath RESPIRATORY: No cough, wheezing, or hemoptysis GASTROINTESTINAL: No nausea, vomiting, diarrhea or constipation GENITOURINARY: No dysuria, frequency, or change in urination MUSCULOSKELETAL: +chronic back pain SKIN: No rash NEUROLOGIC: No headache, vertigo, loss of consciousness, or change in strength/ sensation ENDOCRINE: No increased thirst. No abnormal weight change HEMATOLOGIC/LYMPHATIC: No anemia, easy bleeding, or history of blood clots ALLERGIC/IMMUNOLOGIC: No hives or skin allergy 04/18/18 16:49 Is the patient limited [place] proficient: No *Physical Exam - Vital Signs Last Vital Signs Temp Pulse Resp BP Pulse Ox 98.1 F 79 20 146/74 98 04/18/18 14:49 04/18/18 14:49 04/18/18 14:49 04/18/18 14:49 04/18/18 14:49 - Physical Exam Comments: GENERAL: Awake, alert, and fully oriented, in no acute distress HEAD: No signs of trauma, normocephalic, atraumatic EYES: PERRL, EOMI, sclera anicteric, conjunctiva clear ENT: Hearing grossly normal, nares patent, oropharynx clear without exudates. Moist mucosa NECK: Normal ROM, supple, no cervical LAD LUNGS: No distress, speaks full sentences, clear to auscultation bilaterally HEART:Regular rate and rhythm, normal S1 and S2, no murmurs appreciated, peripheral pulses normal and equal bilaterally ABDOMEN: Soft, nontender, normoactive bowel sounds. No guarding, no rebound EXTREMITIES : Normal inspection, Normal range of motion, no edema. No clubbing or cyanosis NEUROLOGICAL: Cranial nerves II through XII grossly intact. Normal speech, no focal sensorimotor deficits SKIN: Warm, Dry, normal turgor, no rashes or lesions noted 04/18/18 17:51 ED Treatment Course - LABORATORY CBC & Chemistry Diagram: 04/18/18 15:25 04/18/18 15:25 Medical Decision Making - Medical Decision Making The patient is a 67M w/ a history of HTN and depression who presents for evaluation of acute aphasia for approx 2 hours today Ddx: TIA v stroke v lyte abn v cardiogenic ED Course Head CT CMP, CBC, Trop I, UA ECG Head CT w/o acute bleed Initial trop neg Patient asymptomatic while in ED Lytes wnl No leukocytosis Plan for Obs for likely TIA w/ neuro consult 04/18/18 18:10 *DC/Admit/Observation/Transfer Diagnosis at time of Disposition: TIA (transient ischemic attack) Depression, major, recurrent Qualifiers: Active/Remission status: remission status unspecified Qualified Code(s): F33.9 - Major depressive disorder, recurrent, unspecified HTN (hypertension) Qualifiers: Hypertension type: unspecified Qualified Code(s): I10 - Essential (primary) hypertension - Discharge Dispostion Condition at time of disposition: Good Decision to Admit order: Yes - Referrals Referrals: Amadou Humphrey MD [Primary Care Provider] - - Patient Instructions - Post Discharge Activity
[2018-04-18 15:33] LABS: HEMATOCRIT 43.6 % (35.4-49); HEMOGLOBIN 15.1 GM/dL (11.7-16.9); MCH 32.1 pg (25.7-33.7); MCHC 34.7 g/dl (32.0-35.9); MEAN CELL VOLUME 92.7 fl (80-96); MEAN PLT VOLUME 7.4 fl (7.5-11.1); PLATELET COUNT 260 K/MM3 (134-434); RDW 14.5 % (11.9-15.9); WHITE BLOOD COUNT 10.1 K/mm3 (4.0-10.0)
--- NOTE | 2018-04-18 15:49 | PDOC ---
Attending Attestation - HPI HPI: 04/18/18 15:51 The patient is a 67 year old male with a significant past medical history of HTN and depression who presents to the ER with temporary aphasia at approximately 10-12PM today. The patient states he was released from [facility] three days ago and was at home making phone calls. Patient noticed that when he was speaking on the phone he was stumbling over his words. At presentation, patient is speaking in full, coherent sentences. The patient denies chest pain, shortness of breath, headache, and dizziness. Denies fever, chills, nausea, vomit, diarrhea, and constipation. Denies dysuria, frequency, urgency, and hematuria. Allergies: NKA Past surgical history: No reported alcohol, drug, or cigarette use. Social history: None reported. PCP: Dr. Humphrey - Physicial Exam PE: 04/18/18 15:51 Adult Physical Exam Vitals: Triage vital signs reviewed General Appearance: No acute distress, well nourished, well developed Cardiac: Regular rate and rhythm, no murmurs, no rubs, no gallops Lungs: Clear to auscultation bilateral, good air movement bilaterally Abdomen: Soft, nondistended, normal bowel sounds, nontender to palpation Extremities: Full range of motion to all extremities, no cyanosis, clubbing, or edema Skin: Warm and dry, no rashes or lesions, no rash, no petechiae Neuro: AOX3; Cranial Nerves 2-12 grossly intact, Strength intact to all extremities, Sensation intact to all extremities. Psych: Normal mood, normal affect <Swapna Restrepo - Last Filed: 04/18/18 15:55> - Resident Resident Name: Germain Louis - ED Attending Attestation I have performed the following: I have examined & evaluated the patient, The case was reviewed & discussed with the resident, I agree w/resident's findings & plan, Exceptions are as noted - Medical Decision Making 04/18/18 16:39 Nonfocal neurologic examination history and exam consistent with TIA We'll observe overnight for neurology consultation and further management. <Jaswant Barba - Last Filed: 04/18/18 16:39>
[2018-04-18 15:52] LABS: INR 0.98 (0.83-1.09); PROTHROMBIN TIME (PATIENT) 11.6 SEC (9.7-13.0)
[2018-04-18 15:55] LABS: ACTIVATED PTT 26.2 SECONDS (25.2-36.5)
[2018-04-18 16:12] LABS: ALBUMIN 3.5 g/dl (3.4-5.0); ALK PHOS 72 U/L (45-117); ANION GAP 9 MMOL/L (8-16); BILIRUBIN,TOTAL 1.2 mg/dL (0.2-1); BLOOD UREA NITROGEN 30 mg/dL (7-18); CALCIUM 9.9 mg/dL (8.5-10.1); CHLORIDE 105 mmol/L (98-107); CO2 26 mmol/L (21-32); CREATININE 1.9 mg/dL (0.55-1.3); GLUCOSE,RANDOM 94 mg/dL (74-106); POTASSIUM 3.9 mmol/L (3.5-5.1); SGOT/AST 16 U/L (15-37); SGPT/ALT 25 U/L (13-61); SODIUM 141 mmol/L (136-145); TOT PROT 7.4 g/dl (6.4-8.2)
--- NOTE | 2018-04-18 21:33 | HP ---
Admitting History and Physical - Admission History of Present Illness: The patient is a 67 y/o man with a significant past medical history of Hypertension, Hyperlipidemia, Depression. Who presents to the ED with temporary aphasia at approximately 10-12PM today. The patient reports he was released from [facility] three days ago. Patient reports while at home making phone calls, he noticed that when he was speaking on the phone he was stumbling over his words. On arrival to the ED patient is speaking in full, coherent sentences. Patient denies numbness, tingling, blurred vision, UMANA. Patient denies fever, chills, cough, SOB, CP, palpitations, AP, N/V/D, constipation, hematuria, dysuria History Source: Patient Limitations to Obtaining History: No Limitations - Past Medical History Cardiovascular: Yes: HTN, Hyperlipdemia Psych: Yes: Depression - Smoking History Smoking history: Current every day smoker Have you smoked in the past 12 months: Yes Aproximately how many cigarettes per day: 30 - Alcohol/Substance Use Hx Alcohol Use: No History of Substance Use: reports: None - Social History Usual Living Arrangement: Yes: Alone ADL: Independent History of Recent Travel: No Home Medications - Allergies Allergies/Adverse Reactions: Allergies Allergy/AdvReac Type Severity Reaction Status Date / Time No Known Allergies Allergy Verified 03/12/18 15:22 - Home Medications Home Medications: Ambulatory Orders Exforge 10-320 mg Tablet 1 tablet PO DAILY 03/18/18 Acetaminophen [Tylenol .Regular Strength -] 650 mg PO Q6H PRN tablet 03/19/18 Albuterol 0.083% Nebulizer Rosemary [Ventolin 0.083% Nebulizer Soln -] 1 amp NEB Q4H PRN amp 03/19/18 Albuterol 2.5/Ipratropium 0.5 [Duoneb -] 1 amp NEB RQID amp 03/19/18 Amlodipine Besylate [Norvasc -] 10 mg PO DAILY tablet 03/19/18 Heparin - 5,000 unit SQ BID vial 03/19/18 Hydrochlorothiazide [Hctz -] 12.5 mg PO DAILY cap 03/19/18 Mirtazapine [Remeron -] 15 mg PO HS tablet 03/19/18 Nebivolol [Bystolic -] 10 mg PO DAILY tab 03/19/18 Nicotine Patch [Nicoderm Patch -] 14 mg TD DAILY patch 03/19/18 Potassium Chloride [K-Dur -] 40 meq PO DAILY tablet.er 03/19/18 predniSONE [Deltasone -] See Taper PO DAILY tablet 03/19/18 Family Disease History - Family Disease History Family History: Unable to Obtain Review of Systems - Review of Systems Constitutional: reports: No Symptoms Eyes: reports: No Symptoms HENT: reports: No Symptoms Neck: reports: No Symptoms Cardiovascular: reports: No Symptoms Respiratory: reports: No Symptoms Gastrointestinal: reports: No Symptoms Genitourinary: reports: No Symptoms Breasts: reports: No Symptoms Reported Musculoskeletal: reports: No Symptoms Integumentary: reports: No Symptoms Neurological: reports: Change in Speech Endocrine: reports: No Symptoms Hematology/Lymphatic: reports: No Symptoms Psychiatric: reports: No Symptoms Physical Examination Vital Signs: Vital Signs Temperature 98 F 04/18/18 19:30 Pulse Rate 70 04/18/18 19:30 Respiratory Rate 22 H 04/18/18 19:30 Blood Pressure 114/60 04/18/18 19:30 O2 Sat by Pulse Oximetry (%) 95 04/18/18 19:30 Constitutional: Yes: Well Nourished, No Distress, Calm, Obese Eyes: Yes: WNL, Conjunctiva Clear, EOM Intact, PERRL HENT: Yes: WNL, Atraumatic, Normocephalic Neck: Yes: WNL, Supple, Trachea Midline Cardiovascular: Yes: WNL, Regular Rate and Rhythm, S1, S2 Respiratory: Yes: On Nasal O2, Rhonchi, Wheezes Gastrointestinal: Yes: WNL, Normal Bowel Sounds, Soft, Abdomen, Obese ...Rectal Exam: Yes: Deferred Renal/: Yes: WNL Breast(s): Yes: WNL Musculoskeletal: Yes: WNL Extremities: Yes: WNL Edema: No Peripheral Pulses WNL: Yes Integumentary: Yes: WNL Neurological: Yes: WNL, Alert, Oriented, Cran Nerves II-XII Intact ...Motor Strength: WNL Psychiatric: Yes: Alert, Oriented, Agitated Labs: CBC, BMP 04/18/18 15:25 04/18/18 15:25 Laboratory Results - last 24 hr 04/18/18 04/18/18 04/18/18 15:25 15:25 15:25 WBC 10.1 H RBC 4.70 Hgb 15.1 Hct 43.6 MCV 92.7 MCH 32.1 MCHC 34.7 RDW 14.5 Plt Count 260 D MPV 7.4 L D PT with INR 11.60 INR 0.98 PTT (Actin FS) 26.2 Sodium 141 Potassium 3.9 Chloride 105 Carbon Dioxide 26 Anion Gap 9 BUN 30 H Creatinine 1.9 H Creat Clearance w eGFR 35.76 Random Glucose 94 Calcium 9.9 Total Bilirubin 1.2 H AST 16 ALT 25 Alkaline Phosphatase 72 Troponin I < 0.02 Total Protein 7.4 Albumin 3.5 Blood Type Antibody Screen 04/18/18 15:25 WBC RBC Hgb Hct MCV MCH MCHC RDW Plt Count MPV PT with INR INR PTT (Actin FS) Sodium Potassium Chloride Carbon Dioxide Anion Gap BUN Creatinine Creat Clearance w eGFR Random Glucose Calcium Total Bilirubin AST ALT Alkaline Phosphatase Troponin I Total Protein Albumin Blood Type O NEGATIVE Antibody Screen Negative Intake & Output 04/16/18 04/17/18 04/18/18 04/19/18 23:59 23:59 23:59 23:59 Intake Total 200 Balance 200 Weight 100.698 kg Current Medications Generic Name Dose Route Start Last Admin Trade Name Freq PRN Reason Stop Dose Admin Albuterol/Ipratropium 1 amp 04/19/18 00:38 04/19/18 00:56 Duoneb - NEB 1 amp Q6H PRN Administration SHORTNESS OF BREATH Amlodipine Besylate 10 mg 04/19/18 10:00 Norvasc - PO DAILY [facility] Hydrochlorothiazide 12.5 mg 04/19/18 10:00 Hctz - PO DAILY [facility] Mirtazapine 15 mg 04/18/18 23:35 04/18/18 23:46 Remeron - PO 15 mg HS [place] Administration Nebivolol 10 mg 04/19/18 10:00 Bystolic - PO DAILY [place] Nicotine 14 mg 04/19/18 10:00 Nicoderm Patch - TD DAILY [facility] Non-Formulary Medication 1 tablet 04/19/18 10:00 Exforge 10-320 Mg Tablet PO DAILY [place] Imaging - Results Chest X-ray: Report Reviewed, Image Reviewed Cat Scan: Report Reviewed, Image Reviewed EKG: Image Reviewed Problem List - Problems (1) TIA (transient ischemic attack) Assessment/Plan: - r/o CVA - Likely secondary to Arrhythmia vs Tumor - Cardiac monitoring - Serial Enzymes - Carotid Doppler in am - Echo - Appreciate Neurology consult - Swallow Eval - Fall Precautions - CBC, BMP in am Code(s): G45.9 - TRANSIENT CEREBRAL ISCHEMIC ATTACK, UNSPECIFIED (2) COPD (chronic obstructive pulmonary disease) Assessment/Plan: - stable - Chest Xray- no acute pathology - Duoneb - Continue home med - O2 Code(s): J44.9 - CHRONIC OBSTRUCTIVE PULMONARY DISEASE, UNSPECIFIED (3) HTN (hypertension) Assessment/Plan: - stable - Monitor BP - Continue Bystolic, Norvasc - Hold Exforge ( recall on Valsartan) - Monitor renal function Code(s): I10 - ESSENTIAL (PRIMARY) HYPERTENSION Qualifiers: Hypertension type: unspecified Qualified Code(s): I10 - Essential (primary ) hypertension (4) Depression Assessment/Plan: - stable - Continue Remeron Code(s): F32.9 - MAJOR DEPRESSIVE DISORDER, SINGLE EPISODE, UNSPECIFIED (5) HLD (hyperlipidemia) Assessment/Plan: - stable - no current med Code(s): E78.5 - HYPERLIPIDEMIA, UNSPECIFIED Assessment/Plan This is a 67 y/o man PMHx of HTN, HLD, Depression. Placed in Tele Observation for TIA for further evaluation of their emergent condition. FEN PO Fluids as tolerated Replete lytes prn Low Na Diet DVT ppx OOB SCDs Consider AC if LOS > 48 hrs Code Status: Full Code Dispo: Observation Visit type - Emergency Visit Emergency Visit: Yes ED Registration Date: 04/18/18 Care time: The patient presented to the Emergency Department on the above date and was hospitalized for further evaluation of their emergent condition. - New Patient This patient is new to me today: Yes Date on this admission: 04/19/18 - Critical Care Critical Care patient: No
[2018-04-18] MEDS ORDERED: MIRTAZAPINE 15 MG TABLET (FP) PO SCH (23:35)
[2018-04-19] MEDS ORDERED: ALBUTEROL SO4 2.5/IPRATROPIUM 0.5 INH SOL 3 ML VIAL.NEB. NEB PRN (00:38)
[2018-04-19 07:17] LABS: BASO % 0.8 % (0-2.0); EOS % 4.9 % (0-4.5); HEMATOCRIT 40.1 % (35.4-49); HEMOGLOBIN 13.7 GM/dL (11.7-16.9); LYMPH % 24.9 % (8-40); MCH 32.1 pg (25.7-33.7); MCHC 34.1 g/dl (32.0-35.9); MEAN CELL VOLUME 94.1 fl (80-96); MEAN PLT VOLUME 7.7 fl (7.5-11.1); MONO % 6.1 % (3.8-10.2); NEUT % 63.3 % (42.8-82.8); PLATELET COUNT 219 K/MM3 (134-434); RBC 4.27 M/mm3 (4.00-5.60); RDW 14.6 % (11.9-15.9); WHITE BLOOD COUNT 8.9 K/mm3 (4.0-10.0)
[2018-04-19 07:34] LABS: ANION GAP 6 MMOL/L (8-16); BLOOD UREA NITROGEN 31 mg/dL (7-18); CALCIUM 8.9 mg/dL (8.5-10.1); CHLORIDE 104 mmol/L (98-107); CHOLESTEROL 198 mg/dL (50-200); CO2 29 mmol/L (21-32); CREATININE 1.9 mg/dL (0.55-1.3); GLUCOSE,RANDOM 100 mg/dL (74-106); HDL CHOLESTEROL 34 mg/dL (40-60); MAGNESIUM 2.1 mg/dL (1.8-2.4); PHOSPHOROUS 5.6 mg/dL (2.5-4.9); POTASSIUM 4.6 mmol/L (3.5-5.1); SODIUM 139 mmol/L (136-145); TRIGLYCERIDES 181 mg/dL (0-150)
--- NOTE | 2018-04-19 07:34 | CON.NEURO ---
Consult - History of Present Illness History of Present Illness: 67 y/o man with a significant past medical history of Hypertension, Hyperlipidemia, Depression. Who presents to the ED with temporary aphasia at approximately 10-12PM today. The patient reports he was released from [facility] three days ago. Patient reports while at home making phone calls, he noticed that when he was speaking on the phone he was stumbling over his words. On arrival to the ED patient is speaking in full, coherent sentences. Patient denies numbness, tingling, blurred vision, UMANA. Patient denies fever, chills, cough, SOB, CP, palpitations, AP, N/V/D, constipation, hematuria, dysuria. at baseline now, +smokes HD CT no acute changes - Past Medical History Cardio/Vascular: Yes: HTN, Hyperlipdemia Psych: Yes: Depression - Alcohol/Substance Use Hx Alcohol Use: No History of Substance Use: reports: None - Smoking History Smoking history: Current every day smoker Have you smoked in the past 12 months: Yes Aproximately how many cigarettes per day: 30 - Social History ADL: Independent History of Recent Travel: No Home Medications - Allergies Allergies/Adverse Reactions: Allergies Allergy/AdvReac Type Severity Reaction Status Date / Time No Known Allergies Allergy Verified 03/12/18 15:22 - Home Medications Home Medications: Ambulatory Orders Exforge 10-320 mg Tablet 1 tablet PO DAILY 03/18/18 Acetaminophen [Tylenol .Regular Strength -] 650 mg PO Q6H PRN tablet 03/19/18 Albuterol 0.083% Nebulizer Rosemary [Ventolin 0.083% Nebulizer Soln -] 1 amp NEB Q4H PRN amp 03/19/18 Albuterol 2.5/Ipratropium 0.5 [Duoneb -] 1 amp NEB RQID amp 03/19/18 Amlodipine Besylate [Norvasc -] 10 mg PO DAILY tablet 03/19/18 Heparin - 5,000 unit SQ BID vial 03/19/18 Hydrochlorothiazide [Hctz -] 12.5 mg PO DAILY cap 03/19/18 Mirtazapine [Remeron -] 15 mg PO HS tablet 03/19/18 Nebivolol [Bystolic -] 10 mg PO DAILY tab 03/19/18 Nicotine Patch [Nicoderm Patch -] 14 mg TD DAILY patch 03/19/18 Potassium Chloride [K-Dur -] 40 meq PO DAILY tablet.er 03/19/18 predniSONE [Deltasone -] See Taper PO DAILY tablet 03/19/18 Physical Exam-Neuro Vital Signs: Vital Signs Temperature 98.1 F 04/19/18 02:00 Pulse Rate 69 04/19/18 02:00 Respiratory Rate 19 04/19/18 03:30 Blood Pressure 115/57 L 04/19/18 02:00 O2 Sat by Pulse Oximetry (%) 95 04/19/18 03:30 Labs: CBC, BMP 04/19/18 06:00 INR, PTT INR 0.98 (0.83-1.09) 04/18/18 15:25 - Neuro Exam Level Of Consciousness: Yes: Alert, Oriented to Person (no aphasia, no facial, motr 5/5, no drift) Imaging - Results Cat Scan: Report Reviewed, Image Reviewed Problem List - Problems (1) COPD (chronic obstructive pulmonary disease) Code(s): J44.9 - CHRONIC OBSTRUCTIVE PULMONARY DISEASE, UNSPECIFIED (2) TIA (transient ischemic attack) Code(s): G45.9 - TRANSIENT CEREBRAL ISCHEMIC ATTACK, UNSPECIFIED Assessment/Plan 67 y/o man with a significant past medical history of Hypertension, Hyperlipidemia, Depression. Who presents to the ED with temporary aphasia at approximately 10-12PM today. The patient reports he was released from [facility] three days ago. Patient reports while at home making phone calls, he noticed that when he was speaking on the phone he was stumbling over his words. On arrival to the ED patient is speaking in full, coherent sentences. Patient denies numbness, tingling, blurred vision, UMANA. Patient denies fever, chills, cough, SOB, CP, palpitations, AP, N/V/D, constipation, hematuria, dysuria. at baseline now, +smokes HD CT no acute changes AP : transient aphasia, r/o TIA , now at baseline MRI , ECHO, HOlter D[facility]PLERS ASA, smoking cessation DR PICKARD
[2018-04-19] MEDS ORDERED: PT OWN MED DRAWER 7, Y5N ONE (09:00)
--- NOTE | 2018-04-19 09:29 | EKG ---
Test Reason : Blood Pressure : / mmHG Vent. Rate : 071 BPM Atrial Rate : 071 BPM P-R Int : 180 ms QRS Dur : 082 ms QT Int : 420 ms P-R-T Axes : 051 -05 032 degrees QTc Int : 456 ms NORMAL SINUS RHYTHM NONSPECIFIC T WAVE ABNORMALITY ABNORMAL ECG Confirmed by MARTHA VO MD ([id number]) on 04/19/2018 9:28:31 AM Referred By: Confirmed By:MARTHA VO MD
[2018-04-19] MEDS ORDERED: amLODIPine BESYLATE 10 MG TABLET (FP) PO SCH (10:00)
[2018-04-19] MEDS ORDERED: EXFORGE PO SCH (10:00)
[2018-04-19] MEDS ORDERED: NICOTINE 14 MG/24 HOURS TOPICAL PATCH TD SCH (10:00)
[2018-04-19] MEDS ORDERED: ASPIRIN 81 MG CHEWABLE TABLETS PO SCH (10:00)
[2018-04-19] MEDS ORDERED: HYDROCHLOROTHIAZIDE 12.5 MG CAPSULE (FP) PO SCH (10:00)
[2018-04-19] MEDS ORDERED: NEBIVOLOL 10 MG TABLET (FP) PO SCH (10:00)
--- NOTE | 2018-04-19 10:19 | CONSULT ---
Admitting History and Physical - Primary Care Physician PCP: Amadou Humphrey - Admission History of Present Illness: 67 y/o man with a significant past medical history of Hypertension, Hyperlipidemia, Depression who presented to the ED with temporary aphasia Patient reports while at home making emotional phone calls about a friend who is terminally ill, he noticed that when he was speaking "jibberish" and quickly called [address] no acute changes MRI ordered, however, pt wants to go home. Selected Entries 04/19/18 04/19/18 04/19/18 02:00 05:30 06:00 Diet Tolerated Fair Intake, Oral 150 Amount Temperature 98.1 F 98.0 F Laboratory Tests 04/18/18 04/19/18 15:25 06:00 WBC 10.1 H 8.9 History Source: Patient Limitations to Obtaining History: No Limitations - Past Medical History Cardiovascular: Yes: HTN, Hyperlipdemia Psych: Yes: Depression - Smoking History Smoking history: Current every day smoker Have you smoked in the past 12 months: Yes Aproximately how many cigarettes per day: 30 - Alcohol/Substance Use Hx Alcohol Use: No History of Substance Use: reports: None - Social History ADL: Independent History of Recent Travel: No History - Admission Reason For Visit: TRANSIENT ISCHEMIC ATTACK; HYPERTENSION - Diagnostics X-ray: Report Reviewed CT Scan: Report Reviewed MRI: Pending - General Mental Status: Alert and Oriented, Awake and Alert, Able to Follow Commands Attention: Intact Ability to Follow Directions: Excellent Head/Neck Control: WFL - Hearing Hearing: Normal Hearing Aide: No Speech Evaluation - Communication Primary Language: AUSTR[place] Communication: Yes: Within Normal Limits Oral Expression Ability: Yes: No Impairment - Speech Production Able to Make Needs Known: Yes: WNL Intelligibility: Yes: WNL - Speech Characteristics Voice Loudness: Normal Voice Pitch: Yes: Normal Voice Phonatory-based Quality: Yes: Normal Speech Pattern: Normal Speech Clarity: < 100% Nasal Resonance: Normal Articulation: Yes: Precise Rate of Speech: Intact - Language/Auditory Comprehension Follows: Yes: 2 Stage Simple Commands - Language/Verbal Expression Able to Respond to Simple Queries: Yes: WNL Able to Communicate Wants and Needs: Yes: WNL Functional Communication Status: Yes: WNL - 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 Memory: Yes: WNL Short Term Memory: Yes: WNL - Swallow Evaluation/Bedside Assessment Current Nutritional Intake: Regular, Thin Liquids Oral Secretions: Yes: WFL Dentition: Yes: Adequate Facial Symmetry at Rest: Symmetrical Facial Symmetry on Retraction: Symmetrical Sensation: Normal Against Resistance Opening: Normal Against Resistance Closing: Normal Pucker Lips: Normal Smile: Normal Lingual Movement: Normal, Symmetric Lingual Speed of Movement: Normal Lingual Movement Strgth Against Opposition: Normal Lingual Movement Characteristics: Normal Velopharyngeal Movement: Normal Laryngeal Elevation: WFL Laryngeal Movement: Able to Palpate Rate of Intake: WFL Bolus Size: WFL Labial Seal: WFL Chewing: WFL Oral Prep Time: WFL A-P Transit: WFL Timing of Swallow: WFL Coughing/Throat Clear: No Change in Voice: No Recommendations - Speech Evaluation, Impression/Plan Impression: Admitted following onset of "jibberish" c/w Aphasia, that spontaneously recover. Speech/swallow/cognition intact. Refusing MRI. Counseled pt on TIA as warning sign for stroke, need for w/u, vital to call 911 if symptoms return.
--- NOTE | 2018-04-19 12:21 | PN ---
Progress Note, Physician Chief Complaint: TIA History of Present Illness: NAD alert and oriented speaking in full sentences CT head negative Seen by Neurology carotid U/S, MRI brain PENDING - Current Medication List Current Medications: Active Medications Albuterol/Ipratropium (Duoneb -) 1 amp NEB Q6H PRN PRN Reason: SHORTNESS OF BREATH Last Admin: 04/19/18 00:56 Dose: 1 amp Amlodipine Besylate (Norvasc -) 10 mg PO DAILY [facility] Last Admin: 04/19/18 09:11 Dose: 10 mg Aspirin (Asa -) 81 mg PO DAILY [facility] Last Admin: 04/19/18 09:11 Dose: 81 mg Hydrochlorothiazide (Hctz -) 12.5 mg PO DAILY [facility] Last Admin: 04/19/18 09:11 Dose: 12.5 mg Mirtazapine (Remeron -) 15 mg PO HS [facility] Last Admin: 04/18/18 23:46 Dose: 15 mg Nebivolol (Bystolic -) 10 mg PO DAILY [facility] Last Admin: 04/19/18 09:11 Dose: 10 mg Nicotine (Nicoderm Patch -) 14 mg TD DAILY [facility] Last Admin: 04/19/18 09:12 Dose: Not Given - Objective Vital Signs: Vital Signs Temperature 97.8 F 04/19/18 10:00 Pulse Rate 71 04/19/18 10:00 Respiratory Rate 18 04/19/18 11:00 Blood Pressure 112/60 04/19/18 10:00 O2 Sat by Pulse Oximetry (%) 95 04/19/18 11:00 Constitutional: Yes: Well Nourished, No Distress, Calm Cardiovascular: Yes: Regular Rate and Rhythm Respiratory: Yes: Regular Gastrointestinal: Yes: Normal Bowel Sounds, Soft Musculoskeletal: Yes: Muscle Weakness Extremities: Yes: WNL Edema: No Peripheral Pulses WNL: Yes Neurological: Yes: Alert, Oriented Psychiatric: Yes: Alert, Oriented Labs: CBC, BMP 04/19/18 06:00 04/19/18 06:00 INR, PTT INR 0.98 (0.83-1.09) 04/18/18 15:25 Problem List - Problems (1) COPD (chronic obstructive pulmonary disease) Assessment/Plan: bronchodilators -doesn't use O2 at home Code(s): J44.9 - CHRONIC OBSTRUCTIVE PULMONARY DISEASE, UNSPECIFIED (2) HLD (hyperlipidemia) Assessment/Plan: -has not been taking his atorvastatin, prescription sent to pharmacy to restart Code(s): E78.5 - HYPERLIPIDEMIA, UNSPECIFIED (3) Slurred speech Assessment/Plan: U/S carotid and MRI pending -Seen by neurology -can be discharged if MRI negative Code(s): R47.81 - SLURRED SPEECH Assessment/Plan see problem list
[2018-04-19 19:48] VITALS: BP 116/65; PULSE 70; TEMP 97.7
== END 2018-04-19 20:07 | disposition home or self-care (01) ==
LOC: JER 14:33 → JERBED 16:41 → J4S 21:05
PROVIDERS: ADMIT Family Medicine; ATTEND Family Medicine
PROC: 3E0F7GC Introduction of Other Therapeutic Substance into Respiratory Tract, Via Natural or Artificial Opening (ICD-10-PCS; principal; 2018-04-18)
DX: G45.9 Transient cerebral ischemic attack, unspecified (principal); I10 Essential (primary) hypertension; F33.9 Major depressive disorder, recurrent, unspecified; E78.5 Hyperlipidemia, unspecified; F17.210 Nicotine dependence, cigarettes, uncomplicated; J44.9 Chronic obstructive pulmonary disease, unspecified; R47.81 Slurred speech
CPT/HCPCS: 36415; 70450-TC; 70551-TC; 71046-TC-FY; 80048; 80053; 80061; 83721; 83735; 84100; 84484; 85025; 85027; 85610; 85730; 86850; 86900; 86901; 93005; 93010; 93880-TC; 94640; 99284-25; G0378; J7620